=== PATIENT | male | born 1960 | race Caucasian/White ===

== ENCOUNTER 2020-03-27 12:02 | Inpatient (IN) | payer MEDICARE, SELFPAY ==
[2020-03-27 12:33] VITALS: BP 206/95; PULSE 63; RESP 18; TEMP 36.3; O2SAT 98; BMI 36.9
--- NOTE | 2020-03-27 13:05 | ECG_ITS ---
[facility] Test Date: 2020-03-27 Pat Name: Russell Camacho Department: Room: Gender: Male Bar Pilot: : 1960 Requested By: Pebbles Phipps Order Number: [id number] Malvin MD: Kvng Weems M.D. Measurements Intervals [place] Rate: 62 P: 63 MT: 162 QRS: 31 QRSD: 110 T: 67 QT: 429 QTc: 439 Interpretive Statements SINUS RHYTHM NONSPECIFIC T-WAVE ABNORMALITY INTERPRETATION BASED ON A DEFAULT AGE OF 40 YEARS No previous ECG available for comparison Electronically Signed On 03-27-2020 19:20:47 CDT by Kvng Weems M.D. [id number] f
--- NOTE | 2020-03-27 13:06 | XR_ITS ---
WS: [id number] Portable AP upright chest, 03/27/2020 Clinical Data: syncope Comparison: None. Findings: No nodules, masses or effusions are seen. The heart is normal. The pulmonary vascularity is not increased. No pneumonia or pneumothorax is seen. XR/XR chest 1V portable [id number] Impression: Negative chest.
[2020-03-27 15:56] LABS: Basophils # 0.1 10^3/uL (0.0-0.1); Basophils % 0.9 %; Eosinophils # 0.3 10^3/uL (0.0-0.8); Eosinophils % 5.1 %; Hematocrit 30.5 % (42.0-52.0); Lymphocytes # 1.3 10^3/uL (0.8-4.8); Lymphocytes % 22.3 %; Mean Corpuscular HGB Conc 29.5 g/dL (30.0-36.0); Mean Corpuscular Hemoglobin 28.4 pg (28.0-34.0); Mean Corpuscular Volume 96.2 fL (80-94); Mean Platelet Volume 10.3 fL (7.4-10.4); Monocytes # 0.5 10^3/uL (0.2-0.9); Monocytes % 7.8 %; Neutrophils # 3.74 10^3/uL (1.8-7.7); Neutrophils % 63.6 %; Nucleated Red Blood Cells % 0 %; Platelet Count 121 10^3/cmm (130-400); Red Blood Count 3.17 10^6/uL (4.1-5.3); Red Cell Distribution Width 14.3 % (12.1-15.1); White Blood Count 5.9 10^3/uL (4.0-10.0)
[2020-03-27 16:15] LABS: Alanine Aminotransferase 18 U/L (0-41); Albumin Level 4.4 g/dL (3.5-5.2); Alkaline Phosphatase 63 IU/L (40-130); Anion Gap 14.9 (5-19); Aspartate Amino Transferase 12 U/L (0-40); Blood Urea Nitrogen 47 mg/dL (8-23); Carbon Dioxide 21 mmol/L (22-29); Chloride 111 mmol/L (98-107); Globulin 2.6 g/dL (1.3-4.6); Glomerular Filtration Rate 7.8 mL/min (90-130); Glucose 95 mg/dL (65-115); Osmolality Calculated 306 mOsm/kg (285-295); Potassium 4.9 mmol/L (3.5-5.1); Sodium 142 mmol/L (136-145); Total Bilirubin 0.2 mg/dL (0.15-1.2)
--- NOTE | 2020-03-27 16:34 | ECG_ITS ---
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 Measurements Intervals [place] Rate: 60 P: 130 HI: 154 QRS: 188 QRSD: 110 T: 162 QT: 437 QTc: 439 Interpretive Statements SINUS RHYTHM ARM LEADS REVERSED [INVERTED P AND QRS IN I] ATYPICAL ECG Compared to ECG 03/27/2020 12:34:56 T-wave abnormality no longer present Electronically Signed On 03-27-2020 18:36:49 CDT by Kvng Weems M.D. [id number]
--- NOTE | 2020-03-27 16:36 | ED_ITS ---
HPI - General Adult General: Chief complaint: General Medical Stated complaint: L arm pain, HTN-out of meds Time Seen by Provider: 03/27/20 16:16 History of Present Illness: HPI narrative: 80-year-old male presents emergency room complaining of history of hypertension has not been taking his medications lately since he has been out. He denies any difficulty with speech swallowing or hearing. He has had a little bit of a low-grade headache. Onset (ago): minute(s) Location: face Radiation: non-radiation Relieving factors: medication Exacerbating factors: none Associated symptoms: Deny chest pain, dyspnea, malaise, nausea, rash or vomiting Review of Systems Const: Denies: fever(s), chills, body aches, change in appetite, fatigue or malaise ENMT: Denies: throat pain, ear or mastoid pain, nasal discharge or nasal congestion Card: Denies: chest pain, edema, dyspnea on exertion or orthopnea Resp: Denies: dyspnea, productive cough or non-productive cough GI: Denies: abdominal pain, nausea, vomiting, hematemesis, coffee ground emesis, diarrhea, constipation, bloating, hematochezia or melena : Denies: flank pain, dysuria, urinary frequency or urinary urgency Skin/Breast: Denies: rash or pruritus PFSH ED PFSH: Medical History Acute kidney injury Hyperlipidemia Hypertension Hypothyroidism Thrombocytopenia Social History Smoking and tobacco status: never smoked Alcohol intake: never Substance/Drug Use: never Physical Exam Const: COMMON NORMALS: no acute distress GENERAL APPEARANCE: cooperative and comfortable ORIENTATION/CONSCIOUSNESS: Yes awake, Yes oriented to person, Yes oriented to place and Yes oriented to time HENMT: COMMON NORMALS: normocephalic, atraumatic, hearing grossly normal bilaterally, external ears normal, EAC's normal, TM's normal bilaterally, Normal nasal mucous membranes and turbinates present, moist oral mucous membranes and oropharynx normal HEAD & SCALP: normocephalic and atraumatic NOSE: Normal nasal mucous membranes and turbinates present EXTERNAL EAR: Yes external ears normal EXTERNAL AUDITORY CANAL: EAC's normal TYMPANIC MEMBRANE: TM's normal bilaterally Eye: COMMON NORMALS: Equal, round and reactive pupils present, EOMs intact bilaterally, conjunctivae normal and no scleral icterus CONJUNCTIVA: Yes conjunctivae normal PUPIL: Yes Equal, round and reactive pupils present Neck/C-Spine: COMMON NORMALS: full ROM, no lymphadenopathy, supple and no JVD Lymph: LYMPHATIC: no lymphadenopathy noted and no lymphedema noted Resp: COMMON NORMALS: normal respiratory effort, No retractions, No use of accessory muscles and clear to auscultation bilaterally AUSCULTATION: clear to auscultation bilaterally Cardio: COMMON NORMALS: no JVD, regular rate, regular rhythm and No murmurs present (Cardio) RATE: regular rate RHYTHM: regular rhythm GI: COMMON NORMALS: Soft to palpation and No hepatosplenomegaly present AUSCULTATION: Yes normoactive bowel sounds PALPATION: Yes Soft to palpation, No Tenderness to palpation present (GI), No Guarding due to palpation present (GI) and Yes No hepatosplenomegaly present Extremity: COMMON NORMALS: normal to inspection, capillary refill normal, no clubbing, cyanosis or edema, no calf tenderness and no pedal edema Neuro: SENSORIUM/ORIENTATION: Yes oriented to person, Yes oriented to place and Yes oriented to time Skin: COMMON NORMALS: no rashes or lesions noted GENERAL SKIN EXAM: no rashes or lesions noted Course Vital Signs: Vital signs: Vital Signs Temperature 98.0 F 03/30/20 07:11 Pulse Rate 64 03/30/20 07:11 Respiratory Rate 20 H 03/30/20 07:11 Blood Pressure 137/75 03/30/20 07:11 Pulse Oximetry 93 03/30/20 07:11 MDM - General Adult MDM Narrative: Medical decision making narrative: Patient has significant acute kidney injury as well as accelerated hypertension and anemia. Discussed Dr. Black will go ahead and admit Lab Data: Labs: Lab Results 03/27/20 03/27/20 03/27/20 Range/Units 15:51 15:51 15:51 WBC 5.9 (4.0-10.0) 10^3/ uL RBC 3.17 L (4.1-5.3) 10^6/u L Hgb 9.0 L (11.7-16.6) g/dL Hct 30.5 L (42.0-52.0) % MCV 96.2 H (80-94) fL MCH 28.4 (28.0-34.0) pg MCHC 29.5 L (30.0-36.0) g/dL RDW 14.3 (12.1-15.1) % Plt Count 121 L (130-400) 10^3/c mm MPV 10.3 (7.4-10.4) fL Neut % (Auto) 63.6 % Lymph % (Auto) 22.3 % [place] % (Auto) 7.8 % Eos % (Auto) 5.1 % Baso % (Auto) 0.9 % Neut # (Auto) 3.74 (1.8-7.7) 10^3/u L Lymph # (Auto) 1.3 (0.8-4.8) 10^3/u L [place] # (Auto) 0.5 (0.2-0.9) 10^3/u L Eos # (Auto) 0.3 (0.0-0.8) 10^3/u L Baso # (Auto) 0.1 (0.0-0.1) 10^3/u L Nucleated RBC % (a uto) 0 % Nucleated RBCs # 0.0 /100WBC Sodium 142 (136-145) mmol/L Potassium 4.9 (3.5-5.1) mmol/L Chloride 111 H (98-107) mmol/L Carbon Dioxide 21 L (22-29) mmol/L Anion Gap 14.9 (5-19) BUN 47 H (8-23) mg/dL Creatinine 7.2 H* (0.7-1.2) mg/dL GFR Calculation 7.8 L (90-130) mL/min Glucose 95 (65-115) mg/dL Calculated Osmolal ity 306 H (285-295) mOsm/k g Calcium 9.0 (8.5-10.5) mg/dL Total Bilirubin 0.2 (0.15-1.2) mg/dL AST 12 (0-40) U/L ALT 18 (0-41) U/L Alkaline Phosphata se 63 (40-130) IU/L Troponin T Baselin e 40 H (0-15) ng/L Troponin T 120 Min abi (0-15) ng/L Delta Troponin T (0-10) ABS# Total Protein 7.0 (6.6-8.7) g/dL Albumin 4.4 (3.5-5.2) g/dL Globulin 2.6 (1.3-4.6) g/dL 03/27/20 Range/Units 17:15 WBC (4.0-10.0) 10^3/ uL RBC (4.1-5.3) 10^6/u L Hgb (11.7-16.6) g/dL Hct (42.0-52.0) % MCV (80-94) fL MCH (28.0-34.0) pg MCHC (30.0-36.0) g/dL RDW (12.1-15.1) % Plt Count (130-400) 10^3/c mm MPV (7.4-10.4) fL Neut % (Auto) % Lymph % (Auto) % [place] % (Auto) % Eos % (Auto) % Baso % (Auto) % Neut # (Auto) (1.8-7.7) 10^3/u L Lymph # (Auto) (0.8-4.8) 10^3/u L [place] # (Auto) (0.2-0.9) 10^3/u L Eos # (Auto) (0.0-0.8) 10^3/u L Baso # (Auto) (0.0-0.1) 10^3/u L Nucleated RBC % (a uto) % Nucleated RBCs # /100WBC Sodium (136-145) mmol/L Potassium (3.5-5.1) mmol/L Chloride (98-107) mmol/L Carbon Dioxide (22-29) mmol/L Anion Gap (5-19) BUN (8-23) mg/dL Creatinine (0.7-1.2) mg/dL GFR Calculation (90-130) mL/min Glucose (65-115) mg/dL Calculated Osmolal ity (285-295) mOsm/k g Calcium (8.5-10.5) mg/dL Total Bilirubin (0.15-1.2) mg/dL AST (0-40) U/L ALT (0-41) U/L Alkaline Phosphata se (40-130) IU/L Troponin T Baselin e (0-15) ng/L Troponin T 120 Min abi 38.52 H (0-15) ng/L Delta Troponin T -1.48 L (0-10) ABS# Total Protein (6.6-8.7) g/dL Albumin (3.5-5.2) g/dL Globulin (1.3-4.6) g/dL Discharge Plan Discharge Patient Disposition: Admitted As Inpatient Admit Provider: Sylvain Black Clinical Impression: Acute kidney injury, Hypertension, Hyperlipidemia Condition: Stable Discharge Diet: Usual diet Discharge Activity: Increase activity as tolerated Discharge Date/Time: 03/27/20 19:49 Coding Level of Care Code ED Substance Abuse Rn for Dari Arshad
[2020-03-27 17:04] LABS: Troponin(5th) Baseline 40 ng/L (0-15)
[2020-03-27 17:39] LABS: Troponin 5 2HR 38.52 ng/L (0-15)
[2020-03-27 17:42] LABS: Troponin 5 2HR Delta -1.48 ABS# (0-10)
[2020-03-27] MEDS: sodium chloride 0.9% 1,000 ML 999 ML IV (18:02)
[2020-03-27] MEDS: ondansetron 2 mg/ML SDV 2 mL 4 MG IVP (18:02)
[2020-03-27] MEDS: hyDRALAzine 20 mg/mL INJ 1 mL 10 MG IVP (18:02)
[2020-03-27 18:23] VITALS: BP 245/105
[2020-03-27] MEDS: cloNIDine 0.1 mg Tablet 0.2 MG PO (18:23)
--- NOTE | 2020-03-27 18:34 | ECG_ITS ---
[facility] Test Date: 2020-03-27 Pat Name: Russell Camacho Department: Room: Gender: Male Mounter Flutes And Piccolos: : 1960 Requested By: Juan A Crow Order Number: [id number] Malvin MD: Kvng Weems M.D. Measurements Intervals [place] Rate: 59 P: 65 AL: 157 QRS: 20 QRSD: 109 T: 32 QT: 430 QTc: 428 Interpretive Statements SINUS BRADYCARDIA NONSPECIFIC T-WAVE ABNORMALITY Compared to ECG 03/27/2020 16:50:55 T-wave abnormality now present Sinus rhythm no longer present Electronically Signed On 03-27-2020 18:54:59 CDT by Kvng Weems M.D. [id number]
--- NOTE | 2020-03-27 19:17 | P.HP_ITS ---
Providers/Chief Complaint Admitting Physician: Sylvain Black MD Chief Complaint: chest pain/left arm pain History of Present Illness Russell Camacho is a 60 year old male with past medical history of resistant hypertension, and hypothyroidism, came in with chief complaint of, left-sided chest pain and left arm, since this morning, pain is dull,6/10,no aggravating or allevaiting factors. Apart from the chest pain and the left arm pain, he denies any dizziness, headache, visual disturbances, shortness of breath, nausea, vomiting, abdominal pain, back pain, any weakness in any body part, any urinary complaints. He ran out of his antihypertensive medications for weeks as he lost his insurance. When he came to the ER his blood pressure was 245/105. In ER, CBC CMP troponin, EKG, x-ray chest, was done. He was given hydralazine 10 mg I.V * 1 dose, He was also given clonidine 0.2 mg oral x1 dose, nifedipine 90 er 1 dose. Review of Systems General: Reports: 10 or more systems reviewed and unremarkable except in HPI and below Const: Denies: fever(s), chills, body aches, change in appetite or diaphoresis Card: Denies: palpitations, edema, swelling of feet/ankles, dyspnea on exertion, orthopnea or leg pain with exertion Resp: Denies: dyspnea, productive cough, wheezing or pain on inspiration GI: Denies: abdominal pain, nausea, vomiting, diarrhea or constipation : Denies: flank pain Musc: Denies: back pain, extremity pain or extremity swelling Neuro: Denies: headache(s), difficulty walking or confusion Medications/Allergies Home Medications Medication Instructions Recorded Confirmed Last Taken Type aspirin 81 mg PO BID 03/27/20 03/27/20 03/27/20 History atenolol 100 mg PO DAILY 03/27/20 03/27/20 Unknown History atorvastatin 80 mg PO DAILY 03/27/20 03/27/20 Unknown History clonidine HCl 0.1 mg PO DAILY PRN 03/27/20 03/27/20 03/27/20 History colchicine 0.6 mg PO BID 03/27/20 03/27/20 Unknown History ergocalciferol (vitamin D2) 1,250 mcg PO Q7D 03/27/20 03/27/20 Unknown History furosemide [Lasix] 40 mg PO DAILY 03/27/20 03/27/20 Unknown History levothyroxine 50 mcg PO DAILY 03/27/20 03/27/20 Unknown History lisinopril 40 mg PO DAILY 03/27/20 03/27/20 Unknown History nifedipine 90 mg PO DAILY 03/27/20 03/27/20 Unknown History Allergies Allergy/AdvReac Type Severity Reaction Status Date / Time No Known Allergies Allergy Verified 03/27/20 11:18 PFSH Acute PFSH: Social History Smoking and tobacco status: never smoked Alcohol intake: never Substance/Drug Use: never Vitals/I&O/Wt Last Vital Signs Temp 97.3 F L 03/27/20 12:33 Pulse 63 03/27/20 12:33 Resp 18 03/27/20 12:33 BP 245/105 03/27/20 18:23 Pulse Ox 98 03/27/20 12:33 Weight last 48 hrs Weight 127.006 kg Physical Exam Const: COMMON NORMALS: patient oriented x3 HENMT: COMMON NORMALS: normocephalic, atraumatic, hearing grossly normal bilaterally and external ears normal HEAD & SCALP: normocephalic and atraumatic EXTERNAL EAR: Yes external ears normal Eye: COMMON NORMALS: no scleral icterus GENERAL EYE: appearance normal, both eyes and all related structures Chest: COMMONS NORMALS: normal inspection of the chest and normal palpation of entire chest wall CHEST: Yes Symmetrical chest wall rise Resp: COMMON NORMALS: normal respiratory effort, No retractions, No use of acc essory muscles and clear to auscultation bilaterally EFFORT & INSPECTION: Yes symmetric chest movement AUSCULTATION: clear to auscultation bilaterally Cardio: COMMON NORMALS: regular rate, regular rhythm, S1 normal heart sound present, S2 normal heart sound present, No gallops present (Cardio), No murmurs present (Cardio), No rub (Cardio) and Peripheral pulses 2+ throughout RATE: regular rate RHYTHM: regular rhythm HEART SOUNDS: S1 normal heart sound present and S2 normal heart sound present PERIPHERAL PULSES: Peripheral pulses 2+ throughout GI: COMMON NORMALS: Normal to inspection, nondistended, normoactive bowel sounds present, Soft to palpation, non-tender, No hepatosplenomegaly present and no masses AUSCULTATION: Yes normoactive bowel sounds PALPATION: Yes Soft to palpation and Yes No hepatosplenomegaly present RECTAL EXAM: Yes deferred : COMMON NORMALS: Yes no CVA tenderness BLADDER/KIDNEY EXAM: Yes no CVA tenderness Back/Pelvis: COMMON NORMALS: no CVA tenderness Extremity: COMMON NORMALS: no clubbing, cyanosis or edema and no pedal edema Neuro: COMMON NORMALS: patient oriented x3 Data : 03/27/20 15:51 03/27/20 15:51 A&P Assessment and plan (1) Hypertensive urgency: Russell Camacho is a 60 year old male with past medical history of resistant hypertension, and hypothyroidism, came in with chief complaint of, left-sided chest pain and left arm, since this morning, pain is dull,6/10,no aggravating or allevaiting factors. Apart from the chest pain and the left arm pain, he denies any dizziness, headache, visual disturbances, shortness of breath, nausea, vomiting, abdominal pain, back pain, any weakness in any body part, any urinary complaints. He ran out of his antihypertensive medications for weeks as he lost his ins urance. When he came to the ER his blood pressure was 245/105. In ER, CBC CMP troponin, EKG, x-ray chest, was done. He was given hydralazine 10 mg I.V * 1 dose, He was also given clonidine 0.2 mg oral x1 dose, nifedipine 90 er 1 dose. Continue : Resume home medications: Atenolol 100 mg oral daily Clonidine 0.6 mg q12 h daily ( after veriying the dose ) Hydralazine 50 mg q8 h daily Nifedepine 90 mg oral daily Hold Lisinopril 40 mg oral daily Hold Lasix 40 mg po daily Get 2D ECHO CONTINUE TO TREND TROPONIN. Status: Acute (2) Acute kidney injury: ALEKSANDAR V/S ALEKSANDAR ON CKD.Can be due to Hypertensive emergency.Baseline SCR is currently unkown. I.V Hydration, Avoid Nephrotoxic, hold Lisinopril. Renal Consult Status: Acute (3) Hypothyroidism: Continue Levothyroxine 50 mcg oral daily Status: Acute (4) Anemia: Likely ACD. Monitor CBC No need for transfusion Status: Acute (5) Thrombocytopenia: Continue to monitor CBC.No signs of active bleeding,petechae,pupura. Will order ,HepB ,Hep C, HIV Status: Acute (6) Hyperlipidemia: Continue Atorvastatin 80 mg oral daily Status: Acute (7) Chest pain: Likely 2/2 to uncontolled HTN. Trend Troponin, serial ekg, Nitro sublingual Blood Pressure control Status: Acute Additional A&P Information DVT PPX: On Heparin 5000 q12 h daily Code status : Full Code Attestations Medical Necessity Statement*: Patient needs to be in hospital for management of hypertensive urgency. Coding Level of Care Code Acute Molecular Spectroscopist for [facility] Fwd Diagnoses Hypertensive urgency I16.0 Acute kidney injury N17.9 Hypothyroidism E03.9 Anemia D64.9 Thrombocytopenia D69.6 Hyperlipidemia E78.5 Chest pain R07.9
[2020-03-27] MEDS: heparin 5,000 unit/mL INJ 1 mL 5000 UNIT SUBCUT (19:24)
[2020-03-27] MEDS: sodium chloride 0.45% 1,000 ML 125 ML IV (19:26)
[2020-03-27 19:48] VITALS: BP 189/90; PULSE 84; RESP 17; O2SAT 97
[2020-03-27 19:57] VITALS: BP 195/87; PULSE 85; RESP 17; TEMP 36.8; O2SAT 98
[2020-03-27] MEDS: NIFEdipine ER (24 hr) 30 mg Tablet 90 MG PO (20:54)
[2020-03-27] MEDS: hyDRALAzine 50 mg Tablet PO (20:54)
[2020-03-27 21:22] LABS: Urine Creatinine 120 mg/dL (39-259); Urine Random Sodium 86 mmol/L
[2020-03-27 21:27] LABS: Urine Protein Random 97 mg/dL
--- NOTE | 2020-03-27 22:34 | ECG_ITS ---
[facility] Test Date: 2020-03-27 Pat Name: Russell Camacho Department: Room: 105 Gender: Male Tone Regulator: : 1960 Requested By: Juan A Crow Order Number: [id number] Malvin MD: Maribell Lomas M.D. Measurements Intervals [place] Rate: 63 P: 55 [place]: 152 QRS: 23 QRSD: 109 T: -12 QT: 415 QTc: 427 Interpretive Statements SINUS RHYTHM MODERATE T-WAVE ABNORMALITY, CONSIDER LATERAL ISCHEMIA [-0.1+ mV T WAVE IN I/aVL/V5/V6] Compared to ECG 03/27/2020 18:15:11 Possible ischemia now present Sinus bradycardia no longer present T-wave abnormality still present Electronically Signed On 03-28-2020 18:11:36 CDT by Maribell Lomas M.D. [id number]
--- NOTE | 2020-03-27 22:55 | PC.NURSE ---
PT ARRIVED TO FLOOR APPROXIMATELY 1999. PT DENIES PAIN. PT WAS ORIENTATED TO ROOM. WILL CONTINUE TO MONITOR.
[2020-03-27 23:13] LABS: Troponin 5 6HR 38.05 ng/L (0-15)
[2020-03-27 23:18] LABS: Troponin 5 6HR Delta -1.95 ng/L (0-12)
[2020-03-27 23:34] VITALS: BP 173/85; PULSE 64; RESP 18; TEMP 36.7; O2SAT 95
[2020-03-28] VITALS (7 sets, daily range): BP systolic 128–165; BP diastolic 61–81; PULSE 60–70; RESP 18–24; TEMP 36.2–36.8; O2SAT 92–95
[2020-03-28] MEDS: sodium chloride 0.45% 1,000 ML 125 ML IV ×3 (03:48→18:00)
[2020-03-28 04:27] LABS: Basophils % 0.7 %; Eosinophils # 0.3 10^3/uL (0.0-0.8); Eosinophils % 5.1 %; Hematocrit 27.5 % (42.0-52.0); Lymphocytes # 1.3 10^3/uL (0.8-4.8); Lymphocytes % 22.9 %; Mean Corpuscular HGB Conc 29.1 g/dL (30.0-36.0); Mean Corpuscular Hemoglobin 28.5 pg (28.0-34.0); Mean Corpuscular Volume 97.9 fL (80-94); Mean Platelet Volume 10.9 fL (7.4-10.4); Monocytes # 0.5 10^3/uL (0.2-0.9); Monocytes % 7.8 %; Neutrophils # 3.69 10^3/uL (1.8-7.7); Nucleated Red Blood Cells % 0 %; Platelet Count 125 10^3/cmm (130-400); Red Blood Count 2.81 10^6/uL (4.1-5.3); Red Cell Distribution Width 14.6 % (12.1-15.1); White Blood Count 5.9 10^3/uL (4.0-10.0)
[2020-03-28 04:51] LABS: Alanine Aminotransferase 17 U/L (0-41); Albumin Level 3.8 g/dL (3.5-5.2); Alkaline Phosphatase 54 IU/L (40-130); Anion Gap 15.6 (5-19); Aspartate Amino Transferase 12 U/L (0-40); Blood Urea Nitrogen 46 mg/dL (8-23); Calcium 8.4 mg/dL (8.5-10.5); Carbon Dioxide 19 mmol/L (22-29); Chloride 110 mmol/L (98-107); Globulin 2.2 g/dL (1.3-4.6); Glomerular Filtration Rate 9.8 mL/min (90-130); Glucose 96 mg/dL (65-115); Magnesium 2.2 mg/dL (1.7-2.3); Osmolality Calculated 302 mOsm/kg (285-295); Phosphorus 5.8 mg/dL (2.5-4.5); Potassium 4.6 mmol/L (3.5-5.1); Sodium 140 mmol/L (136-145); Total Bilirubin 0.2 mg/dL (0.15-1.2)
[2020-03-28] MEDS: heparin 5,000 unit/mL INJ 1 mL 5000 UNIT SUBCUT ×2 (05:34→17:59)
--- NOTE | 2020-03-28 06:41 | PC.NURSE ---
PT HAD AN UNEVENTFUL NIGHT. BP IS COMING DOWN CURRENTLY 144/78. DENIES PAIN AT THIS TIME. WILL CONTINUE TO MONITOR.
[2020-03-28] MEDS: levothyroxine 50 mcg Tablet PO (08:04)
[2020-03-28] MEDS: cloNIDine 0.1 mg Tablet 0.3 MG PO ×2 (08:04→20:39)
[2020-03-28] MEDS: atorvastatin 40 mg Tablet 80 MG PO (08:07)
[2020-03-28] MEDS: aspirin 81 mg Chew Tablet PO ×2 (08:07→18:00)
[2020-03-28] MEDS: ergocalciferol (vitamin D2) 50,000 Unit Capsule 50000 UNIT PO (08:07)
[2020-03-28] MEDS: sodium bicarbonate 650 mg Tablet PO ×3 (09:16→20:39)
[2020-03-28] MEDS: atenolol 50 mg Tablet 100 MG PO (09:17)
[2020-03-28] MEDS: hyDRALAzine 50 mg Tablet PO ×2 (09:17→20:39)
--- NOTE | 2020-03-28 10:56 | P.CONIM_ITS ---
Providers/Reason For Consult Consulting Physican/Specialty*: Nephrology Reason for Consult*: Eval for ALEKSANDAR Attending Physician: Sylvain Black MD History of Present Illness History of Present Illness Thank you for consultation. Today I reviewed this 60-year-old gentleman for evaluation of acute on chronic kidney disease. He presented with a left chest and arm discomfort, which has now resolved after hospitalization. It was noted on admission that his systolic blood pressure was 245. He has missed his medication now for the last few months. Following hospitalization he is received a combination of antihypertensives including Atenolol, nifedipine, clonidine, hydralazine with a good improvement in his blood pressure down to 14 0-150 systolic. From a renal perspective, he has had stage IV chronic kidney disease now for the last couple of years. He was referred to see a weed cutter, however did not do so. He attributes the chronic kidney disease to exposure to proton pump inhibitors. We do not have any historic labs to review all data. He has had high blood pressure since the age of 28, intermittently controlled a nd intermittently on a variety of different medications. He has not had any evaluation for secondary causes. Of note he does have symptoms of obstructive sleep apnea, was tested for this number of years ago which was okay, however no recent testing. It is noted that he is obese. No other history of adrenal disorders, and no history of renal artery disease or other vascular bed disease. No edema and no other volume associated symptoms. Renal sono shows small atrophic kidneys, simple cysts. Review of Systems Narrative: ROS - 12 point review of systems completed per HPI and subjective assessment, this includes Constitutional: No weakness, fatigue Respiratory: No SOB on exertion, comfortable at rest CardioVasc: No chest pain, palpitations Gastrointestinal: No nausea, no vomiting Neurological: No seizures, no AMS Derm: No new rashes, lesions or wounds Immunological: No seasonal and no food allergies Meds/Allergies Home Medications and Allergies Home Medications Medication Instructions Recorded Confirmed Last Taken Type aspirin 81 mg PO BID 03/27/20 03/27/20 03/27/20 History atenolol 100 mg PO DAILY 03/27/20 03/27/20 Unknown History atorvastatin 80 mg PO DAILY 03/27/20 03/27/20 Unknown History clonidine HCl 0.1 mg PO DAILY PRN 03/27/20 03/27/20 03/27/20 History colchicine 0.6 mg PO BID 03/27/20 03/27/20 Unknown History ergocalciferol (vitamin D2) 1,250 mcg PO Q7D 03/27/20 03/27/20 Unknown History furosemide [Lasix] 40 mg PO DAILY 03/27/20 03/27/20 Unknown History levothyroxine 50 mcg PO DAILY 03/27/20 03/27/20 Unknown History lisinopril 40 mg PO DAILY 03/27/20 03/27/20 Unknown History nifedipine 90 mg PO DAILY 03/27/20 03/27/20 Unknown History Allergies Allergy/AdvReac Type Severity Reaction Status Date / Time No Known Allergies Allergy Verified 03/27/20 11:18 Current Medications Current Medications Generic Name Dose Route Start Last Admin Trade Name Freq PRN Reason Stop Dose Admin Aspirin 81 mg 03/28/20 09:00 03/28/20 08:07 Aspirin Chewable PO 81 mg BID JANEY Administration Atenolol 100 mg 03/28/20 09:00 03/28/20 09:17 Tenormin PO 100 mg DAILY JANEY Administration Atorvastatin Calcium 80 mg 03/28/20 09:00 03/28/20 08:07 Lipitor PO 80 mg DAILY JANEY Administration Clonidine HCl 0.3 mg 03/28/20 08:00 03/28/20 08:04 Catapres PO 0.3 mg Q12H JANEY Administration Ergocalciferol 50,000 unit 03/28/20 09:00 03/28/20 08:07 Vitamin D2 PO 50,000 unit Q7D JANEY Administration Heparin Sodium (Beef Lung) 5,000 unit 03/27/20 18:30 03/28/20 05:34 Heparin SUBCUT 5,000 unit Q12H JANEY Administration Hydralazine HCl 50 mg 03/27/20 21:00 03/28/20 09:17 Apresoline PO 50 mg TID JANEY Administration Sodium Chloride 1,000 mls @ 125 mls/hr 03/27/20 18:30 03/28/20 03:48 Sodium Chloride 0.45% IV 125 mls/hr .Q8H JANEY Administration Levothyroxine Sodium 50 mcg 03/28/20 09:00 03/28/20 08:04 Synthroid PO 50 mcg DAILY JANEY Administration Nifedipine 90 mg 03/27/20 19:00 03/27/20 20:54 Procardia Xl PO 90 mg Q24H JANEY Administration Sodium Bicarbonate 650 mg 03/28/20 09:00 03/28/20 09:16 Sodium Bicarbonate PO 650 mg TID JANEY Administration PFSH Acute 2 PFSH: Social History Smoking and tobacco status: never smoked Alcohol intake: never Substance/Drug Use: never Vitals/I&O/Wt Last Vital Signs Temp 98.1 F 03/28/20 07:39 Pulse 70 03/28/20 07:39 Resp 18 03/28/20 07:39 BP 156/81 03/28/20 08:04 Pulse Ox 95 03/28/20 07:39 03/27/20 03/28/20 03/28/20 22:59 06:59 14:59 Intake Total 120 / 120 1950 / 2070 354 / 354 Output Total 675 / 675 700 / 700 Balance 120 / 120 1275 / 1395 -346 / -346 Weight last 48 hrs Weight 127.006 kg Physical Exam Narrative: EXAM NARRATIVE: Constitutional: Awake, conversant HEENT: Wet mucosa, no jvp, non icteric Lungs: Bilaterally clear without discernible wheeze, rales in all lung zones CVS: S1 S2, no murmurs Abdo: Soft, BS ok Ext 4: Minimal edema, peripheral perfusion with no cyanosis Neurological: Grossly non-focal A&P Additional A&P Information 1. ALEKSANDAR on CKD stage 4 - We do not have historic data, however, he gives a clear history of stage IV chronic kidney disease. 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 He is currently receiving intravenous fluid and blood pressures coming under control, and this is helping to improve his renal function. Over the next few days we should see how renal function plateaus out, or reflection of his baseline. In terms of diagnostic testing, ultrasound imaging has been done. I will formally quantify urinary protein, check CPK, uric acid, TSH. No indication for hemodialysis at this time. Following discharge will need to be seen by nephrology in a local clinic. Avoid the usual nephrotoxic agents. 2.Hypertension His blood pressure is coming under control. With this in mind I have not adjusted his blood pressure regimen. He does need diagnostic testing for secondary hypertension. As an outpatient I have implored him to get a sleep study as soon as possible. Tomorrow morning we will check renin/Toan levels and cortisol levels. Will consider renal artery Doppler down the road as well, however, even if stenosis is present is unlikely to change his management. Over the next few days his blood pressure goal will be a systolic of roughly 150 with a long-term goal of less than 130/80 3. Chest and left arm pain. Pending echocardiogram and troponin levels. Defer any further diagnostic evaluation to Dr. Black. If angiographic dye is required over the next few days, this will have to be balanced against potential risk of harm to his kidneys. Jeevan Mendoza MD Nephrology [phone] Patient seen and examined via telemedicine, with the assistance of the bedside RN Consult Attestations Medical Necessity Statement: Eval for ALEKSANDAR Coding Level of Care Code Acute Branch Operation Evaluation Manager for Dari Arshad
--- NOTE | 2020-03-28 13:30 | PC.CHAP ---
Pastoral Care Encounter/Spiritual Assessment Type of Contact [] Declined counter caser visit [] Patient/Family/Request visit [] Outpatient visit [] Follow-up visit [] Physician referral [] Code/Alert [X] Routine visit [] Staff referral [] Actively dying [] Patient sleeping [] Family support [] [] Out of room [] Palliative care [] [] Receiving care in room [] Pre-surgical visit [] Trauma [] Long length of stay [] ICU visit [] Other: Relational/Emotional Strength [] Patient feels connected with others/family/visitors/staff [] Distress [] Loneliness/isolation [] Abandonment Spirituality of Patient [] Person of Christen [] Attends Latter Day of their Christen [] Believes in Prayer [] Reads Bible or Religion materials [] There are Spiritual issues to be addressed Transmission Builder Interventions [] Prayer [] Active listening [] Non-anxious presence [] Spiritual/emotional support [] Crisis/trauma care [] Spiritual counseling [] Bereavement support [] Provided bereavement packet [] Provided Bible/devotional materials [] Provided toy/stuffed animal, coloring book to patient or family member [] Provided Communion [] Anointing/[place] [] Salvation [] Completed spiritual assessment [] Other: Impact on Illness or Injury [] Angry [] Fearful [] Anxious [] Often cries [] Exhaustion [] Unable to work [] Unable to attend rastafari [] Unable to walk/stand [] Unable to read [] Unable to drive [] Unable to eat/drink [] Unable to sleep [] Unable to be with family [] Patient intubated [] Other: Summary Time spent with patient
[2020-03-28 13:32] LABS: Creatine Phosphokinase 102 U/L (39-308); Thyroid Stimulating Hormone 4.45 uIU/mL (0.27-4.20); Uric Acid 6.7 mg/dL (3.4-7.0)
--- NOTE | 2020-03-28 15:45 | PM.PN ---
Subjective Subjective: Interval history: No complain of lt sided chest pain as well as arm pain.Blood pressure is well controlled.SCR is trending down. Vitals and labs have been reviewed.Renal U/S done. Medications: Reviewed: Yes Vitals/I&O/Wt Last Vital Signs Temp 97.2 F L 03/28/20 12:07 Pulse 66 03/28/20 12:07 Resp 18 03/28/20 12:07 BP 128/61 03/28/20 12:07 Pulse Ox 95 03/28/20 12:07 03/28/20 03/28/20 03/28/20 06:59 14:59 22:59 Intake Total 1949 / 0 1249.833 / 1249.833 Output Total 675 / 675 1300 / 1300 Balance 1275 / 1395 -50.167 / -50.167 Weight last 48 hrs Weight 127.006 kg Physical Exam Const: COMMON NORMALS: patient oriented x3 HENMT: COMMON NORMALS: normocephalic, atraumatic, hearing grossly normal bilaterally and external ears normal HEAD & SCALP: normocephalic and atraumatic EXTERNAL EAR: Yes external ears normal Eye: COMMON NORMALS: no scleral icterus GENERAL EYE: appearance normal, both eyes and all related structures Chest: COMMONS NORMALS: normal inspection of the chest and normal palpation of entire chest wall CHEST: Yes Symmetrical chest wall rise Resp: COMMON NORMALS: normal respiratory effort, No retractions, No use of accessory muscles and clear to auscultation bilaterally EFFORT & INSPECTION: Yes symmetric chest movement AUSCULTATION: clear to auscultation bilaterally Cardio: COMMON NORMALS: regular rate, regular rhythm, S1 normal heart sound present, S2 normal heart sound present, No gallops present (Cardio), No murmurs present (Cardio), No rub (Cardio) and Peripheral pulses 2+ throughout RATE: regular rate RHYTHM: regular rhythm HEART SOUNDS: S1 normal heart sound present and S2 normal heart sound present PERIPHERAL PULSES: Peripheral pulses 2+ throughout GI: COMMON NORMALS: Normal to inspection, nondistended, normoactive bowel sounds present, Soft to palpation, non-tender, No hepatosplenomegaly present and no masses AUSCULTATION: Yes normoactive bowel sounds PALPATION: Yes Soft to palpation and Yes No hepatosplenomegaly present RECTAL EXAM: Yes deferred : COMMON NORMALS: Yes no CVA tenderness BLADDER/KIDNEY EXAM: Yes no CVA tenderness Back/Pelvis: COMMON NORMALS: no CVA tenderness Extremity: COMMON NORMALS: no clubbing, cyanosis or edema and no pedal edema Neuro: COMMON NORMALS: patient oriented x3 Data : 03/28/20 03:33 03/28/20 03:33 A&P Assessment and plan (1) Hypertensive urgency: Russell Camacho is a 60 year old male with past medical history of resistant hypertension, and hypothyroidism, came in with chief complaint of, left-sided chest pain and left arm, since this morning, pain is dull,6/10,no aggravating or allevaiting factors. Apart from the chest pain and the left arm pain, he denies any dizziness, headache, visual disturbances, shortness of breath, nausea, vomiting, abdominal pain, back pain, any weakness in any body part, any urinary complaints. He ran out of his antihypertensive medications for weeks as he lost his insurance. When he came to the ER his blood pressure was 245/105. In ER, CBC CMP troponin, EKG, x-ray chest, was done. He was given hydralazine 10 mg I.V * 1 dose, He was also given clonidine 0.2 mg oral x1 dose, nifedipine 90 er 1 dose. Continue : Resume home medications: Atenolol 100 mg oral daily Clonidine 0.3 mg q12 h daily ( after veriying the dose ) Hydralazine 50 mg q12 h daily Nifedepine 90 mg oral daily Hold Lisinopril 40 mg oral daily Hold Lasix 40 mg po daily 2D ECHO: Normal left ventricular size, systolic function and wall thickness, with no regional wall motion abnormalities. Left ventricular ejection fraction is estimated at 65%. Indeterminate diastolic function.Normal right ventricular size and systolic function. Normal pulmonary artery pressure. No prior similar studies to compare. Status: Acute (2) Acute kidney injury: ALEKSANDAR V/S ALEKSANDAR ON CKD.Can be due to Hypertensive emergency.Baseline SCR is currently unkown. I.V Hydration, Avoid Nephrotoxic, hold Lisinopril. Renal Consult Status: Acute (3) Hypothyroidism: Continue Levothyroxine 50 mcg oral daily Status: Acute (4) Anemia: Likely ACD. Monitor CBC No need for transfusion Status: Acute (5) Thrombocytopenia: Continue to monitor CBC.No signs of active bleeding,petechae,pupura. Will order ,HepB ,Hep C, HIV Status: Acute (6) Hyperlipidemia: Continue Atorvastatin 80 mg oral daily Status: Acute (7) Chest pain: Likely 2/2 to uncontolled HTN. Trend Troponin, serial ekg, Nitro sublingual Blood Pressure control Status: Acute Additional A&P Information DVT PPX: On Heparin 5000 q12 h daily Code status : Full Code Attestations Medical Necessity Statement*: Patient need to be hospital for Severe ALEKSANDAR managemnt as well for hypertensive urgency management. Coding Level of Care Code Acute [employer] for Chg Fwd Diagnoses Hypertensive urgency I16.0 Acute kidney injury N17.9 Hypothyroidism E03.9 Anemia D64.9 Thrombocytopenia D69.6 Hyperlipidemia E78.5 Chest pain R07.9
[2020-03-28] MEDS: NIFEdipine ER (24 hr) 30 mg Tablet 90 MG PO (18:00)
--- NOTE | 2020-03-28 19:14 | USCV_ITS ---
Russell Camacho Age: 60 Gender: M : 1960 Exam Date: 03/28/2020 06:47 Ordering Phys: Sylvain Black MD Technologist: Nguyen Ellis Exam Location: [facility] [place] Indication: Chest pain BP: / HR: Rhythm: Sinus Technical Quality: Fair MEASUREMENTS (Male / Female) Normal Values 2D ECHO LV Diastolic Diameter PLAX 5.5 cm 4.2 - 5.9 / 3.9 - 5.3 cm LV Systolic Diameter PLAX 3.7 cm LV Chamber Size 5.0 cm IVS Diastolic Thickness 2.1 cm 0.6 - 1.0 / 0.6 - 0.9 cm IVS Systolic Thickness 2.9 cm LVPW Diastolic Thickness 1.7 cm 0.6 - 1.0 / 0.6 - 0.9 cm LVPW Systolic Thickness 2.0 cm RV Chamber Size 3.1 cm LVOT Diameter 2.1 cm LV Ejection Fraction 2D Teich 60.0 % LV Ejection Fraction MOD 2C 72.8 % LV Ejection Fraction 2C AL 72.6 % LA Diameter 4.1 cm LA Width 4.2 cm LA Height 5.2 cm RA Width 2.8 cm RA Height 5.4 cm Aorta at Sinotubular Diameter 3.3 cm M-MODE LV Diastolic Diameter MM 6.2 cm 4.2 - 5.9 / 3.9 - 5.3 cm LV Systolic Diameter MM 3.6 cm LV Ejection Fraction MM Teich 72.3 % IVS Diastolic Thickness MM 1.6 cm 0.6 - 1.0 / 0.6 - 0.9 cm IVS Systolic Thickness MM 1.9 cm LVPW Diastolic Thickness MM 1.4 cm 0.6 - 1.0 / 0.6 - 0.9 cm LVPW Systolic Thickness MM 2.4 cm RV Diastolic Diameter MM 2.4 cm Aortic Annulus Diameter 3.8 cm LA Ao Ratio MM 0.9 MV E Point Septal Separation 0.2 cm DOPPLER AV Peak Velocity 167.0 cm/s LVOT Peak Velocity 120.0 cm/s AV Area Cont Eq vti 2.7 cm squared AV Area Cont Eq pk 2.4 cm squared MV Area PHT 4.0 cm squared Mitral E to A Ratio 1.2 MV E' Velocity 57.0 cm/s Mitral E to MV E' Ratio 15.8 Mitral E to LV E' Lateral Ratio 13.3 Mitral E to LV E' Septal Ratio 19.6 TR Peak Velocity 207.0 cm/s TR Peak Gradient 17.1 mmHg TV Peak E Velocity 62.0 cm/s Right Atrial Pressure 3.0 mmHg Pulmonary Artery Systolic Pressu 20.1 mmHg PV Peak Velocity 82.0 cm/s RV Acceleration Time 0.1 s RV Ejection Time 0.3 s RV AcT/ET 0.2 FINDINGS Left Ventricle Normal left ventricular size, systolic function and wall thickness, with no regional wall motion abnormalities. Left ventricular ejection fraction is estimated at 65%. Indeterminate diastolic function. Right Ventricle Normal right ventricular size and systolic function. Right ventricular systolic pressure 20.1 mmHg. Right Atrium Normal right atrial size. Right atrial pressure stimated at 3 mm Hg. Left Atrium Upper normal left atrial size. Mitral Valve Mildly thickened mitral valve. No mitral valve stenosis. Trace mitral valve regurgitation. Aortic Valve Aortic valve not well visualized. Possibly tricupsid aortic valve. No aortic valve stenosis. No aortic valve regurgitation. Tricuspid Valve Structurally normal tricuspid valve. Trace tricuspid valve regurgitation. Pulmonic Valve Pulmonic valve not well visualized. No pulmonary valve stenosis. No significant pulmonary valve regurgitation. Pericardium No pericardial effusion. Normal sized inferior vena cava. Aorta Normal sized aortic root. CONCLUSIONS 1. Normal left ventricular size, systolic function and wall thickness, with no regional wall motion abnormalities. Left ventricular ejection fraction is estimated at 65%. Indeterminate diastolic function. 2. Normal right ventricular size and systolic function. 3. Normal pulmonary artery pressure. 4. No prior similar studies to compare. Maribell Lomas MD (Electronically Signed) Final Date: 28 March 2020 14:11 S
--- NOTE | 2020-03-28 19:15 | USR_ITS ---
PROCEDURE INFORMATION: Exam: US Retroperitoneal; Complete; Kidneys and Bladder Exam date and time: 03/28/2020 6:16 AM Age: 60 years old Clinical indication: Abnormal findings; Abnormal lab test; Abnormal kidney function lab tests; Additional info: Randy TECHNIQUE: Imaging protocol: Real-time ultrasound of the retroperitoneum with image documentation. Complete exam focused on the kidneys and bladder. COMPARISON: No relevant prior studies available. FINDINGS: Right kidney: The right kidney measures 9.08 cm in length. There is right renal cortical atrophy. No hydronephrosis is seen. There are no obvious calcifications in the right kidney or abnormal masses. Left kidney: The left kidney measures 10.45 cm in length. There is left renal cortical atrophy. There are 2 benign simple cysts in the right kidney measuring 3 cm and 2 cm in diameter. There are no suspicious masses. There is no hydronephrosis on the left side. There is a 1.3 cm nonobstructing calcification in the left kidney. Aorta: The visualized portion of the aorta is unremarkable. Bladder: The urinary bladder is unremarkable. US/US renal BI with bladder IMPRESSION: 1. Left nephrolithiasis. 2. Renal cortical atrophy. 3. No hydronephrosis. COMMENTS: Consistent with the [employer]'s Incidental Findings Committee white paper (J Am Reginald Radiol 2018): Any incidental renal lesion less than 1 cm or classified as too small to characterize, or any incidental cystic renal lesion characterized as simple-appearing, is likely benign. No follow-up imaging is recommended for these lesions per consensus recommendations based on imaging criteria.
[2020-03-29] VITALS (8 sets, daily range): BP systolic 124–160; BP diastolic 60–81; PULSE 59–66; RESP 14–20; TEMP 36.6–37; O2SAT 94–99
[2020-03-29] MEDS: sodium chloride 0.45% 1,000 ML 125 ML IV ×3 (02:08→18:09)
[2020-03-29 05:36] LABS: Basophils % 0.9 %; Eosinophils # 0.3 10^3/uL (0.0-0.8); Eosinophils % 6.4 %; Hematocrit 26.2 % (42.0-52.0); Hemoglobin 7.8 g/dL (11.7-16.6); Lymphocytes # 1.2 10^3/uL (0.8-4.8); Lymphocytes % 25.7 %; Mean Corpuscular HGB Conc 29.8 g/dL (30.0-36.0); Mean Corpuscular Hemoglobin 28.9 pg (28.0-34.0); Mean Platelet Volume 10.7 fL (7.4-10.4); Monocytes # 0.4 10^3/uL (0.2-0.9); Monocytes % 9.8 %; Neutrophils # 2.56 10^3/uL (1.8-7.7); Neutrophils % 56.8 %; Nucleated Red Blood Cells % 0 %; Platelet Count 136 10^3/cmm (130-400); Red Cell Distribution Width 14.9 % (12.1-15.1); White Blood Count 4.5 10^3/uL (4.0-10.0)
[2020-03-29] MEDS: heparin 5,000 unit/mL INJ 1 mL 5000 UNIT SUBCUT ×2 (05:43→18:05)
[2020-03-29 05:59] LABS: Alanine Aminotransferase 14 U/L (0-41); Albumin Level 3.7 g/dL (3.5-5.2); Alkaline Phosphatase 52 IU/L (40-130); Anion Gap 14.4 (5-19); Aspartate Amino Transferase 9 U/L (0-40); Blood Urea Nitrogen 46 mg/dL (8-23); Calcium 8.4 mg/dL (8.5-10.5); Carbon Dioxide 19 mmol/L (22-29); Chloride 109 mmol/L (98-107); Glomerular Filtration Rate 8.7 mL/min (90-130); Glucose 115 mg/dL (65-115); Magnesium 2.2 mg/dL (1.7-2.3); Osmolality Calculated 299 mOsm/kg (285-295); Phosphorus 5.2 mg/dL (2.5-4.5); Potassium 4.4 mmol/L (3.5-5.1); Sodium 138 mmol/L (136-145); Total Bilirubin 0.2 mg/dL (0.15-1.2); Total Protein 5.7 g/dL (6.6-8.7)
--- NOTE | 2020-03-29 06:33 | PC.NURSE ---
PT HAD AN UNEVENTFUL NIGHT. BP IS COMING DOWN CURRENTLY 129/74. DENIES PAIN AT THIS TIME. WILL CONTINUE TO MONITOR.
[2020-03-29] MEDS: cloNIDine 0.1 mg Tablet 0.3 MG PO (07:51)
[2020-03-29] MEDS: hyDRALAzine 50 mg Tablet PO (07:51)
[2020-03-29] MEDS: atenolol 50 mg Tablet PO (09:17)
[2020-03-29] MEDS: aspirin 81 mg Chew Tablet PO ×2 (09:17→18:05)
[2020-03-29] MEDS: atorvastatin 40 mg Tablet 80 MG PO (09:17)
[2020-03-29] MEDS: levothyroxine 50 mcg Tablet PO (09:18)
[2020-03-29] MEDS: sodium bicarbonate 650 mg Tablet PO ×3 (09:18→21:22)
--- NOTE | 2020-03-29 16:44 | P.PN_ITS ---
Subjective Subjective: Interval history: Feels a little tried but he is otherwise ok with no other overt uremic Sx. No edema and no other volume assoc Sx. Passing urine, no obstructive Sx. Bps came down with initiation of his home meds (? outpatient compliance) Medications: Reviewed: Yes Vitals/I&O/Wt Last Vital Signs Temp 97.8 F 03/29/20 15:25 Pulse 61 03/29/20 15:25 Resp 20 H 03/29/20 15:25 BP 160/81 03/29/20 15:25 Pulse Ox 95 03/29/20 15:25 03/29/20 03/29/20 03/29/20 06:59 14:59 22:59 Intake Total 1120 / 3729.000 1660 / 1660 Output Total 700 / 3150 1050 / 1050 Balance 420 / 579.000 610 / 610 Physical Exam Narrative: EXAM NARRATIVE: Constitutional: Awake, conversant HEENT: Wet mucosa, no jvp, non icteric Lungs: Bilaterally clear without discernible wheeze, rales in all lung zones CVS: S1 S2, no murmurs Abdo: Soft, BS ok Ext 4: Minimal edema, peripheral perfusion with no cyanosis Neurological: Grossly non-focal Data : 03/29/20 05:16 03/29/20 05:16 A&P Additional A&P Information 1. ALEKSANDAR on CKD stage 4 - We do not have historic data, however, he gives a clear history of stage IV chronic kidney disease. 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 - Creatinine has increased since yesterday, very troubling as this may well indicate he is approaching ESRD - Creatinine may have increased a little as his Bp came down to normotensive goals No indication for hemodialysis at this time. Following discharge will need to be seen by nephrology in a local clinic. Avoid the usual nephrotoxic agents. 2.Hypertension D/w Dr Black; we will allow his sBps to rise to 150-170 by cutting back on his meds Over the next few days his blood pressure goal will be a systolic of roughly 150 with a long-term goal of less than 130/80 3. Chest and left arm pain. Pending echocardiogram and troponin levels. Defer any further diagnostic evalu ation to Dr. Black. 4. Acidosis on sodium bicarb 5. Hyperphos - mild, may need binder therapy if persistently high Jeevan Mendoza MD Nephrology [phone] Patient seen and examined via telemedicine, with the assistance of the bedside RN Attestations Medical Necessity Statement*: eval for ALEKSANDAR on CKD Coding Level of Care Code Acute Senior Project Controls Specialist for Jennifferg Jeancarlos
[2020-03-29] MEDS: NIFEdipine ER (24 hr) 30 mg Tablet 60 MG PO (18:04)
[2020-03-29] MEDS: tamsulosin 0.4 mg Capsule PO (18:05)
[2020-03-29 19:42] LABS: Anion Gap 15.5 (5-19); Blood Urea Nitrogen 50 mg/dL (8-23); Calcium 8.2 mg/dL (8.5-10.5); Carbon Dioxide 20 mmol/L (22-29); Chloride 107 mmol/L (98-107); Glucose 156 mg/dL (65-115); Osmolality Calculated 303 mOsm/kg (285-295); Potassium 4.5 mmol/L (3.5-5.1); Sodium 138 mmol/L (136-145)
--- NOTE | 2020-03-29 21:05 | P.PN_ITS ---
Subjective Subjective: Interval history: No acute event overnight.Mr camacho is denying any symptoms. B/P is well controlled.SCR is trending down Vitals and labs have been reviewed. Medications: Reviewed: Yes Vitals/I&O/Wt Last Vital Signs Temp 98.1 F 03/29/20 19:47 Pulse 66 03/29/20 19:47 Resp 20 H 03/29/20 19:47 BP 152/75 03/29/20 19:47 Pulse Ox 96 03/29/20 19:47 03/29/20 03/29/20 03/29/20 06:59 14:59 22:59 Intake Total 1120 / 3729.000 1660 / 1660 1558.333 / 3218.333 Output Total 700 / 3150 1050 / 1050 620 / 1670 Balance 420 / 579.000 610 / 610 938.333 / 1548.333 Physical Exam Const: COMMON NORMALS: patient oriented x3 HENMT: COMMON NORMALS: normocephalic, atraumatic, hearing grossly normal bilaterally and external ears normal HEAD & SCALP: normocephalic and atraumatic EXTERNAL EAR: Yes external ears normal Eye: COMMON NORMALS: no scleral icterus GENERAL EYE: appearance normal, both eyes and all related structures Chest: COMMONS NORMALS: normal inspection of the chest and normal palpation of entire chest wall CHEST: Yes Symmetrical chest wall rise Resp: COMMON NORMALS: normal respiratory effort, No retractions, No use of accessory muscles and clear to auscultation bilaterally EFFORT & INSPECTION: Yes symmetric chest movement AUSCULTATION: clear to auscultation bilaterally Cardio: COMMON NORMALS: regular rate, regular rhythm, S1 normal heart sound present, S2 normal heart sound present, No gallops present (Cardio), No murmurs present (Cardio), No rub (Cardio) and Peripheral pulses 2+ throughout RATE: regular rate RHYTHM: regular rhythm HEART SOUNDS: S1 normal heart sound present and S2 normal heart sound present PERIPHERAL PULSES: Peripheral pulses 2+ throughout GI: COMMON NORMALS: Normal to inspection, nondistended, normoactive bowel sounds present, Soft to palpation, non-tender, No hepatosplenomegaly present and no masses AUSCULTATION: Yes normoactive bowel sounds PALPATION: Yes Soft to palpation and Yes No hepatosplenomegaly present RECTAL EXAM: Yes deferred Extremity: COMMON NORMALS: no clubbing, cyanosis or edema and no pedal edema Neuro: COMMON NORMALS: patient oriented x3 Data : 03/29/20 05:16 03/29/20 19:01 A&P Assessment and plan (1) Hypertensive urgency: Russell Camacho is a 60 year old male with past medical history of resistant hypertension, and hypothyroidism, came in with chief complaint of, left-sided chest pain and left arm, since this morning, pain is dull,6/10,no aggravating or allevaiting factors. Apart from the chest pain and the left arm pain, he denies any dizziness, headache, visual disturbances, shortness of breath, nausea, vomiting, abdominal pain, back pain, any weakness in any body part, any urinary complaints. He ran out of his antihypertensive medications for weeks as he lost his insurance. When he came to the ER his blood pressure was 245/105. In ER, CBC CMP troponin, EKG, x-ray chest, was done. He was given hydralazine 10 mg I.V * 1 dose, He was also given clonidine 0.2 mg oral x1 dose, nifedipine 90 er 1 dose. Continue : Resume home medications: Decreased Atenolol to 50 mg oral daily from 100 mg oral daily to acheive the target B/P around 150 mm hg. Clonidine 0.1 mg PRN h daily Nifedepine 60 mg oral daily Hold Lisinopril 40 mg oral daily Hold Lasix 40 mg po daily Get 2D ECHO: Normal LVEF: 65 % , No RWMA , Normal PAP, Renal U.S: Left nephrolithiasis. Renal cortical atrophy. No hydronephrosis Status: Acute (2) Acute kidney injury: ALEKSANDAR V/S ALEKSANDAR ON CKD.Can be due to Hypertensive emergency.Baseline SCR is currently unkown. I.V Hydration, Avoid Nephrotoxic, hold Lisinopril. Renal Rec appreciated. Status: Acute (3) Hypothyroidism: Continue Levothyroxine 50 mcg oral daily Status: Acute (4) Anemia: Likely ACD. Monitor CBC No need for transfusion Status: Acute (5) Thrombocytopenia: Continue to monitor CBC.No signs of active bleeding,petechae,pupura. Will order ,HepB ,Hep C, HIV Status: Acute (6) Hyperlipidemia: Continue Atorvastatin 80 mg oral daily Status: Acute (7) Chest pain: Likely 2/2 to uncontolled HTN. Trend Troponin, serial ekg, Nitro sublingual Blood Pressure control Status: Acute Additional A&P Information DVT PPX: On Heparin 5000 q12 h daily Code status : Full Code Attestations Medical Necessity Statement*: Patient needs to be in hospital for management of Renal failure. Coding Level of Care Code Acute Geophysical Support Specialist for Chg Fwd Diagnoses Hypertensive urgency I16.0 Acute kidney injury N17.9 Hypothyroidism E03.9 Anemia D64.9 Thrombocytopenia D69.6 Hyperlipidemia E78.5 Chest pain R07.9
[2020-03-30] VITALS: BP 138/79; PULSE 66; RESP 20; TEMP 36.8; O2SAT 96
[2020-03-30] MEDS: sodium chloride 0.9% 1,000 ML 999 ML IV (02:50)
[2020-03-30] MEDS: sodium chloride 0.45% 1,000 ML 125 ML IV (02:55)
[2020-03-30 04:00] VITALS: BP 131/62; PULSE 69; RESP 12; TEMP 36.6; O2SAT 92
[2020-03-30 06:35] LABS: Anion Gap 16.3 (5-19); Blood Urea Nitrogen 44 mg/dL (8-23); Calcium 8.5 mg/dL (8.5-10.5); Carbon Dioxide 19 mmol/L (22-29); Chloride 107 mmol/L (98-107); Glomerular Filtration Rate 9.2 mL/min (90-130); Glucose 151 mg/dL (65-115); Osmolality Calculated 300 mOsm/kg (285-295); Potassium 4.3 mmol/L (3.5-5.1); Sodium 138 mmol/L (136-145)
[2020-03-30] MEDS: heparin 5,000 unit/mL INJ 1 mL 5000 UNIT SUBCUT (06:45)
[2020-03-30 07:11] VITALS: BP 137/75; PULSE 64; RESP 20; TEMP 36.7; O2SAT 93
[2020-03-30] MEDS: atorvastatin 40 mg Tablet 80 MG PO (08:03)
[2020-03-30] MEDS: atenolol 50 mg Tablet PO (08:03)
[2020-03-30] MEDS: levothyroxine 50 mcg Tablet PO (08:03)
[2020-03-30] MEDS: aspirin 81 mg Chew Tablet PO (08:04)
[2020-03-30] MEDS: sodium bicarbonate 650 mg Tablet PO (08:04)
--- NOTE | 2020-03-30 09:33 | PM.PN ---
Subjective Subjective: Interval history: Mild fatigue but no other uremic Sx. No edema and no other overt hypervolemic Sx. Passing urine. Some sciatic nerve discomfort. Bps controlled Medications: Reviewed: Yes Vitals/I&O/Wt Last Vital Signs Temp 98.0 F 03/30/20 07:11 Pulse 64 03/30/20 07:11 Resp 20 H 03/30/20 07:11 BP 137/75 03/30/20 07:11 Pulse Ox 93 03/30/20 07:11 03/29/20 03/30/20 03/30/20 22:59 06:59 14:59 Intake Total 2158.333 / 3818.333 1600 / 5418.333 480 / 480 Output Total 1240 / 2290 1625 / 3915 600 / 600 Balance 918.333 / 1528.333 -25 / 1503.333 -120 / -120 Physical Exam Narrative: EXAM NARRATIVE: Constitutional: Awake, conversant HEENT: Wet mucosa, no jvp, non icteric Lungs: Bilaterally clear without discernible wheeze, rales in all lung zones CVS: S1 S2, no murmurs Abdo: Soft, BS ok Ext 4: Minimal edema, peripheral perfusion with no cyanosis Neurological: Grossly non-focal Data : 03/29/20 05:16 03/30/20 05:12 A&P Additional A&P Information 1. ALEKSANDAR on CKD stage 4 > likely to be stage 5 now - We do not have historic data, however, he gives a clear history of stage IV chronic kidney disease. 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 - Creatinine swinging up and down but eGFR is pretty stable 8-10ml/min - No indication for hemodialysis at this time. Following discharge will need to be seen by nephrology in a local clinic: I have discussed his care with Dr Lundberg who will see him in the clinic within the next 2 weeks Avoid the usual nephrotoxic agents. - ok for DC from my perspective, the big part of his care now is to see Dr Lundberg expeditiously in the outpatient clinic, learn about dialysis modalities and have expeditious preparation for them Jeevan Mendoza MD Nephrology [phone] Patient seen and examined via telemedicine, with the assistance of the bedside RN Attestations Medical Necessity Statement*: eval for ALEKSANDAR/CKD Coding Level of Care Code Acute Associate Medical Director for Dari Arshad
[2020-03-30] MEDS: acetaminophen 325 mg Tablet 650 MG PO (10:22)
[2020-03-30 10:52] VITALS: BP 142/75; PULSE 68; RESP 22; TEMP 36.4; O2SAT 96
--- NOTE | 2020-03-30 11:18 | PM.DCS ---
Discharge Providers Date of Admission: 03/27/20 17:43 Date of Discharge: March 30, 2020 Attending Provider at Admission: Sylvain Black MD Attending Provider at Discharge: Quincy Gastelum MD Consults: Nephrology: Dr. Almazan Diagnoses at Discharge Discharge Diagnosis (1) Hypertensive urgency: Status: Acute (2) Acute kidney injury: Status: Acute (3) Hypothyroidism: Status: Acute (4) Anemia: Status: Acute (5) Thrombocytopenia: Status: Acute (6) Hyperlipidemia: Status: Acute (7) Chest pain: Status: Acute Reason for Visit Reason for Visit: chest pain/left arm pain Hospital Course Discharge Summary: Russell Camacho is a 60 year old male with past medical history of resistant hypertension, and hypothyroidism, came in with chief complaint of, left-sided chest pain and left arm, since this morning, pain is dull,6/10,no aggravating or allevaiting factors. Apart from the chest pain and the left arm pain, he denies any dizziness, headache, visual disturbances, shortness of breath, nausea, vomiting, abdominal pain, back pain, any weakness in any body part, any urinary complaints. He has had high blood pressure since the age of 28, intermittently controlled and intermittently on a variety of different medications. He has not had any evaluation for secondary causes. Of note he does have symptoms of obstructive sleep apnea, was tested for this number of years ago which was okay, however no recent testing. It is noted that he is obese. No other history of adrenal disorders, and no history of renal artery disease or other vascular bed disease. He ran out of his antihypertensive medications for weeks as he lost his insurance. When he came to the ER his blood pressure was 245/105. He was admitted to the hospital for hypertensive emergency. His blood work in the ER on day of admission showed 5.9, hemoglobin of 9, sodium of 142, creatinine of 7.2 with BUN of 47, AST/ALT of 12/18, baseline troponin of 40 with 2-hour delta of -1. He was admitted to the hospital and was treated with IV antihypertensives. He responded well to the treatment. His hypertensive emergency is most likely because of noncompliance. Because of acute renal failure nephrology was consulted. 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 Hypertensives were adjusted. Given extreme renal failure his goal blood pressure is less than 150/90 mmHg for now chronically less than 130/80 mmHg. He underwent renal imaging to r/o obstructive uropthy.Renal ultrasound showed left nephrolithiasis without any obstruction with renal cortical atrophy. Echocardiogram was done which showed 55% with no regional wall motion abnormality with intermediate diastolic dysfunction. His electrolytes remained stable and creatinine continues to remain stable with good urine output. On the day of discharge his creatinine is 6.2 with BUN of 44. And as per nephrology he has no indication of hemodialysis at this time. He was advised to follow-up with Dr. Lundberg from nephrology in 2 weeks with possible hemodialysis in future. He is been discharged hemodynamically stable condition with just his antihypertensive with advice follow-up with kosher dietary service manager and compliant with medications. Medications been provided to him next to bed. Physical Exam Const: COMMON NORMALS: patient oriented x3 HENMT: COMMON NORMALS: normocephalic, atraumatic, hearing grossly normal bilaterally and external ears normal HEAD & SCALP: normocephalic and atraumatic EXTERNAL EAR: Yes external ears normal Eye: COMMON NORMALS: no scleral icterus GENERAL EYE: appearance normal, both eyes and all related structures Chest: COMMONS NORMALS: normal inspection of the chest and normal palpation of entire chest wall CHEST: Yes Symmetrical chest wall rise Resp: COMMON NORMALS: normal respiratory effort, No retractions, No use of accessory muscles and clear to auscultation bilaterally EFFORT & INSPECTION: Yes symmetric chest movement AUSCULTATION: clear to auscultation bilaterally Cardio: COMMON NORMALS: regular rate, regular rhythm, S1 normal heart sound present, S2 normal heart sound present, No gallops present (Cardio), No murmurs present (Cardio), No rub (Cardio) and Peripheral pulses 2+ throughout RATE: regular rate RHYTHM: regular rhythm HEART SOUNDS: S1 normal heart sound present and S2 normal heart sound present PERIPHERAL PULSES: Peripheral pulses 2+ throughout GI: COMMON NORMALS: Normal to inspection, nondistended, normoactive bowel sounds present, Soft to palpation, non-tender, No hepatosplenomegaly present and no masses AUSCULTATION: Yes normoactive bowel sounds PALPATION: Yes Soft to palpation and Yes No hepatosplenomegaly present RECTAL EXAM: Yes deferred : COMMON NORMALS: Yes no CVA tenderness BLADDER/KIDNEY EXAM: Yes no CVA tenderness Back/Pelvis: COMMON NORMALS: no CVA tenderness Extremity: COMMON NORMALS: no clubbing, cyanosis or edema and no pedal edema Neuro: COMMON NORMALS: patient oriented x3 Discharge Data Data Completed and Pending: Completed Studies During Hospitalization Category Date Time Status XR chest 1V hyacinth ble 11359 Stat Exams 03/27/20 13:06 Completed CV echo complete* [id number] Routine Ultrasound 03/28/20 19:14 Completed US renal BI with bladder Routine Ultrasound 03/28/20 19:15 Completed Pending at discharge Category Date Time Status Complete Blood Co unt w/Auto AM LABS Lab 03/30/20 04:00 Ordered Comprehensive Met abolic Panel AM LA BS Lab 03/30/20 04:00 Ordered Free T4 Free Thyr oxine Routine Lab 03/30/20 11:17 Ordered Magnesium AM LABS Lab 03/30/20 04:00 Ordered Phosphorus AM LAB S Lab 03/30/20 04:00 Ordered T3 Free Routine Lab 03/30/20 11:17 Ordered Urine Creatinine Routine Lab 03/29/20 22:01 Ordered Urine Protein Ran dom Routine Lab 03/29/20 22:01 Ordered Labs from last 24 hours 03/30/20 03/29/20 05:12 19:01 Sodium 138 138 Potassium 4.3 4.5 Chloride 107 107 Carbon Dioxide 19 L 20 L Anion Gap 16.3 15.5 BUN 44 H 50 H Creatinine 6.2 H* 5.8 H* GFR Calculation 9.2 L 10.0 L Glucose 151 H 156 H Calculated Osmolal ity 300 H 303 H Calcium 8.5 8.2 L Vitals: Last Vital Signs Temp 97.6 F 03/30/20 10:52 Pulse 68 03/30/20 10:52 Resp 22 H 03/30/20 10:52 BP 142/75 03/30/20 10:52 Pulse Ox 96 03/30/20 10:52 Discharge Plan Discharge Patient Disposition: Home Condition: Stable Prescriptions: New tamsulosin 0.4 mg Capsule 0.4 mg PO DAILY@1700 Qty: 30 RF: 0 sodium bicarbonate 650 mg Tablet 650 mg PO TID Qty: 90 RF: 0 Miralax 17 gram/dose powder 17 gm PO DAILY PRN (Reason: constipation) Qty: 119 RF: 0 Continued atorvastatin 80 mg Tablet 80 mg PO DAILY RF: 0 clonidine HCl 0.1 mg Tablet 0.1 mg PO DAILY PRN (Reason: BLOOD PRESSURE) RF: 0 levothyroxine 50 mcg Tablet 50 mcg PO DAILY RF: 0 aspirin 81 mg Tablet,Chewable 81 mg PO BID RF: 0 ergocalciferol (vitamin D2) 1,250 mcg (50,000 unit) Capsule 1,250 mcg PO Q7D RF: 0 nifedipine 90 mg Tablet Extended Release 90 mg PO DAILY Qty: 30 RF: 0 Changed atenolol 100 mg Tablet 50 mg PO DAILY Qty: 30 RF: 0 colchicine 0.6 mg Capsule 0.6 mg PO DAILY Qty: 0 RF: 0 Discontinued furosemide [Lasix] 40 mg Tablet 40 mg PO DAILY RF: 0 lisinopril 40 mg Tablet 40 mg PO DAILY RF: 0 Discharge Orders: Discharge Order (Routine); Ordered 03/30/20 Ordered By: Quincy Gastelum Referrals: Fernando Noble MD [Physician] - 04/02/20 10:30 am (You have a hospital followup with Dr Noble at his office [facility] on April 02 at 10:30 ) Jalen Lundberg MD [Referring] - 7-10 days (Dr. Lundberg's office will be calling you to set an appointment to be seen here in [place].) Discharge Diet: Usual diet Discharge Activity: Increase activity as tolerated Patient Instructions: Tamsulosin (By mouth), Polyethylene Glycol 3350 (By mouth) Activity Restrictions/Additional Instructions: Follow-up with your primary care provider on the set appointment on April 02 at 10:30 AM. You are supposed to follow-up with Dr. Lundberg/kosher dietary service manager within next 2 weeks. Your antihypertensives her blood pressure medications have been adjusted. Discharge Date/Time: 03/30/20 13:50 Discharge Attestations Time Spent in Discharge Care*: greater than 30 min Specific Discharge Activities: Specific discharge activities: educating patient, discussing with pcp/other providers, discussing with case reviewer/social workers/dc planners, documenting/other paperwork and evaluating patient/reviewing data Status at Discharge: Cognitive status at discharge: cognitively intact, Behavioral status at discharge: cooperative, Functional status at discharge: independent ambulation Overall status at discharge: patient has a new baseline Quality Metrics Clinical Quality Measures During this hospital stay, did patient experience: None Coding Level of Care Code Acute Floor Covering Printer for g Fwd Exam Comprehensive Diagnoses Hypertensive urgency I16.0 Acute kidney injury N17.9 Hypothyroidism E03.9 Anemia D64.9 Thrombocytopenia D69.6 Hyperlipidemia E78.5 Chest pain R07.9
[2020-03-30] MEDS: polyethylene glycol 3350 Pkt 17 gm PO (12:45)
[2020-03-30 13:33] VITALS: BP 153/84; PULSE 62; RESP 15; TEMP 36.8; O2SAT 97
[2020-03-30 13:34] VITALS: BP 153/84; PULSE 62; RESP 15; TEMP 36.8; O2SAT 97
[2020-03-30 15:25] LABS: Free T4 Free Thyroxine 0.86 ng/dL (0.82-1.77); T3 Free 2.7 PG/ML (2.0-4.4)
[2020-03-30 19:01] LABS: Basophils % 0.6 %; Eosinophils # 0.3 10^3/uL (0.0-0.8); Eosinophils % 5.4 %; Hematocrit 27.8 % (42.0-52.0); Hemoglobin 8.1 g/dL (11.7-16.6); Lymphocytes % 20.8 %; Mean Corpuscular HGB Conc 29.1 g/dL (30.0-36.0); Mean Corpuscular Hemoglobin 28.8 pg (28.0-34.0); Mean Corpuscular Volume 98.9 fL (80-94); Mean Platelet Volume 11.6 fL (7.4-10.4); Monocytes # 0.4 10^3/uL (0.2-0.9); Neutrophils # 3.14 10^3/uL (1.8-7.7); Neutrophils % 64.8 %; Nucleated Red Blood Cells % 0 %; Platelet Count 122 10^3/cmm (130-400); Red Blood Count 2.81 10^6/uL (4.1-5.3); Red Cell Distribution Width 14.8 % (12.1-15.1); White Blood Count 4.9 10^3/uL (4.0-10.0)
[2020-03-31 08:20] LABS: Alanine Aminotransferase 21 U/L (0-41); Albumin Level 3.9 g/dL (3.5-5.2); Alkaline Phosphatase 57 IU/L (40-130); Anion Gap 14.4 (5-19); Aspartate Amino Transferase 15 U/L (0-40); Blood Urea Nitrogen 49 mg/dL (8-23); Calcium 8.3 mg/dL (8.5-10.5); Carbon Dioxide 20 mmol/L (22-29); Chloride 108 mmol/L (98-107); Globulin 1.9 g/dL (1.3-4.6); Glomerular Filtration Rate 9.6 mL/min (90-130); Glucose 152 mg/dL (65-115); Magnesium 2.3 mg/dL (1.7-2.3); Osmolality Calculated 302 mOsm/kg (285-295); Phosphorus 4.6 mg/dL (2.5-4.5); Potassium 4.4 mmol/L (3.5-5.1); Sodium 138 mmol/L (136-145); Total Bilirubin 0.2 mg/dL (0.15-1.2); Total Protein 5.8 g/dL (6.6-8.7)
== END 2020-03-30 13:50 | disposition home or self-care (01) | DRG 305 ==
LOC: ER 17:57 → CSU 18:31
PROVIDERS: Internal Medicine Nephrology; Nurse Practitioner Family; Admitting Provider Internal Medicine; Emergency Provider Family Medicine; Visit Provider Student in an Organized Health Care Education/Training Program
DX: I16.0 Hypertensive urgency (principal); N18.4 Chronic kidney disease, stage 4 (severe); N17.9 Acute kidney failure, unspecified; N11.9 Chronic tubulo-interstitial nephritis, unspecified; E03.9 Hypothyroidism, unspecified; I12.9 Hypertensive chronic kidney disease with stage 1 through stage 4 chronic kidney disease, or unspecified chronic kidney disease; Z91.120 Patient's intentional underdosing of medication regimen due to financial hardship; D63.1 Anemia in chronic kidney disease; D69.6 Thrombocytopenia, unspecified; E78.5 Hyperlipidemia, unspecified; G47.33 Obstructive sleep apnea (adult) (pediatric); E66.9 Obesity, unspecified; Z68.36 Body mass index [BMI] 36.0-36.9, adult; N20.0 Calculus of kidney; Z79.82 Long term (current) use of aspirin
CPT/HCPCS: 12345; 36415; 71045; 76770; 76857; 80048; 80053; 82550; 82570; 83735; 84100; 84156; 84300; 84439; 84443; 84481; 84484; 84550; 85025; 93005; 93306; 96372; 96375; 99284; J0360; J1644; J2405; J7030; Q3014

== ENCOUNTER → 2020-04-10 09:50 | Outpatient (BNVA) | payer MEDICARE, SELFPAY | PROVIDERS: Visit Provider Family Medicine Adult Medicine | DX: I10 Essential (primary) hypertension (principal); E78.5 Hyperlipidemia, unspecified; D69.6 Thrombocytopenia, unspecified; R07.9 Chest pain, unspecified; I16.0 Hypertensive urgency; E66.09 Other obesity due to excess calories; D64.9 Anemia, unspecified; N18.5 Chronic kidney disease, stage 5; E03.9 Hypothyroidism, unspecified | CPT/HCPCS: 80053; 80061; 82043; 84443; 85025 ==

== ENCOUNTER → 2020-04-24 12:13 | Outpatient (BNVA) | payer MEDICARE, SELFPAY | PROVIDERS: Visit Provider Family Medicine Adult Medicine | DX: D64.9 Anemia, unspecified (principal); D69.6 Thrombocytopenia, unspecified; E03.9 Hypothyroidism, unspecified; E78.5 Hyperlipidemia, unspecified; I10 Essential (primary) hypertension; N18.5 Chronic kidney disease, stage 5 | CPT/HCPCS: 80053 ==

== ENCOUNTER → 2020-05-21 15:03 | Outpatient (BNVA) | payer MEDICARE, SELFPAY | PROVIDERS: Visit Provider Surgery | DX: Z20.828 Contact with and (suspected) exposure to other viral communicable diseases (principal); Z01.812 Encounter for preprocedural laboratory examination | CPT/HCPCS: 87635 ==

== ENCOUNTER 2020-05-27 10:47 | Day surgery (SDC) | payer MEDICARE, SELFPAY ==
[2020-05-26 14:43] VITALS: BMI 38.6
[2020-05-27] VITALS (7 sets, daily range): BP systolic 153–185; BP diastolic 86–99; PULSE 74–85; RESP 13–20; TEMP 36.3–36.6; O2SAT 95–98
[2020-05-27] MEDS: sodium chloride 0.9% 1,000 ML 30 ML IV (11:27)
--- NOTE | 2020-05-27 11:33 | ANES.PREANE2 ---
Pre-Anesthetic Assessment Pre-Anesthetic Assessment: Height/Weight: Height 1.85 m Weight 132.903 kg Temp Pulse Resp BP Pulse Ox 97.3 F L 85 16 153/86 97 05/27/20 11:18 05/27/20 11:18 05/27/20 11:18 05/27/20 11:18 05/27/20 11:18 Preop Diagnosis: ckd Proposed Procedure: Operation Date: 05/27/20 12:25 Proposed Procedures p laparoscopic possible open peritoneal dialysis catheter placement left exteriorized 66238 N18.5(Left) - Robb Barber MD Familial anesthetic complications: None Was Beta Kelly taken within 24 hours: N/A Last intake: Intake Last Liquid Date 05/27/20 Last Liquid Time 06:30 Last Solid Date 05/26/20 Last Solid Time 18:00 Social: Social History: No alcohol and No tobacco Exam: Pre-Anes Outpt Exam: alert, oriented x 3, clear to auscultation bilaterally and regular rate & rhythm Airway: Cervical ROM: WNL MP: 4 Dentition: Chipped (4-5 damaged teeth) Pulmonary: Pulmonary: COPD and Sleep apnea CV/HEM: CV/HEM: Anemia and Palp Comments: Echo 04/07 - EF 65% : : Chronic renal Insufficiency Comments: CKD Metabolic: Metabolic: DM, Hyperlipidemia, Morbid obesity and Thyroid Anesthetic Plan: ASA status: 3 Anesthesia: General Risk of > 500 ml blood loss (7ml/kg in children): No Meds/Allergies Current Medications: Current Medications Generic Name Dose Route Start Last Admin Trade Name Freq PRN Reason Stop Dose Admin Sodium Chloride 1,000 mls @ 30 ml s/hr 05/27/20 11:00 05/27/20 11:27 Sodium Chloride 0.9% IV 05/28/20 10:59 30 mls/hr .Q24H JANEY Administration PFSH Anesthesia PFSH: Medical History Chronic kidney disease (CKD) stage G5/A1, glomerular filtration rate (GFR) less than or equal to 15 mL/min/1.73 square meter and albuminuria creatinine ratio less than 30 mg/g Diverticulitis Hyperlipidemia Hypertension with albuminuria Hypertensive urgency Hypothyroidism JEVON (obstructive sleep apnea) Surgical History H/O circumcision Family History Mother Anesthesia complication allergic reaction and on surgical table Other CAD (coronary artery disease) Hypertension Stroke Denies family history of Diabetes Bleeding disorder Social History Smoking and tobacco status: never smoked Alcohol intake: never Household members: spouse Marital status: Current occupational status: disabled History of recent travel: No Data Anesthesia Cardiac Studies: No Data to Display
--- NOTE | 2020-05-27 14:05 | P.HP_ITS ---
Same Day Surgery H&P Indication for Procedure/HPI DATE OF PROCEDURE: May 27, 2020 CHIEF COMPLAINT/INDICATIONFOR SURGICAL PROCEDURE: dialysis catheter PREOP DIAGNOSIS: ckd PLANNED PROCEDRUE: Operation Date: 05/27/20 12:25 Proposed Procedures p laparoscopic possible open peritoneal dialysis catheter placement left exteriorized 13904 N18.5(Left) - Robb Barber MD Medications/Allergies* Home Medications Medication Instructions Recorded Confirmed Type clonidine 0.2 mg/24 hr weekly 1 patch TRANSDERMAL .weekly each 04/16/20 05/27/20 History transdermal patch doxazosin 4 mg tablet 4 mg PO .hs tab 04/16/20 05/27/20 History Allergies/Adverse Reactions Allergy/AdvReac Type Severity Reaction Status Date / Time No Known Allergies Allergy Verified 05/27/20 11:13 Current Medications: Generic Name Dose Route Start Last Admin Trade Name Freq PRN Reason Stop Dose Admin Sodium Chloride 1,000 mls @ 30 mls/hr 05/27/20 11:00 05/27/20 11:27 Sodium Chloride 0.9% IV 05/28/20 10:59 30 mls/hr .Q24H JANEY Administration Pertinent History/Comorbid Conditions* Medical History (Updated 05/04/20 @ 10:39 by Robb Barber MD) Chronic kidney disease (CKD) stage G5/A1, glomerular filtration rate (GFR) less than or equal to 15 mL/min/1.73 square meter and albuminuria creatinine ratio l ess than 30 mg/g Diverticulitis Hyperlipidemia Hypertension with albuminuria Hypertensive urgency Hypothyroidism JEVON (obstructive sleep apnea) Surgical History (Updated 05/04/20 @ 10:39 by Robb Barber MD) H/O circumcision Family History (Updated 05/04/20 @ 10:24 by Maryann Au LPN) CAD (coronary artery disease) Anesthesia complication Mother allergic reaction and on surgical table Hypertension Stroke Denies family history of Diabetes Bleeding disorder Social History Smoking and tobacco status: never smoked Alcohol intake: never Household members: spouse Marital status: Current occupational status: disabled History of recent travel: No Pertinent Exam Findings alert and oriented x 3 Recommendations Surgery/Procedure today Coding Level of Care Code Acute Oracle Application Consultant for Dari Arshad
[2020-05-27] MEDS: heparin 5,000 unit/mL INJ 1 mL 5000 UNIT IRRIGATION (17:01)
--- NOTE | 2020-05-27 17:16 | P.OP_ITS ---
Operative Report Date of procedure: May 27, 2020 Pre-op Diagnosis: Chronic kidney disease Post-op diagnosis: same Procedure Done: Laparoscopic placement of peritoneal dialysis catheter Pathology: none sent Surgeon: Robb Barber Anesthesia: General Condition: stable Disposition: PACU Procedure: The patient was taken to the operating room and intubated under general anesthesia after IV antibiotic had been administered. The abdomen was prepped and draped in a sterile manner. Using 15 blade a 1 cm incision was made in the left upper quadrant and a Veress needle introduced to create 15 mm of pneumoperitoneum. Using Optiview technique, a 5 mm port was placed and a 5 mm 30? scope was introduced. Another 5 mm port was placed in the right lower quadrant at the level of the umbilicus in the midclavicular line. The pigtail peritoneal dialysis catheter was placed on the abdominal wall and the position marked, an introducer needle was passed through the abdominal wall to the right of the midline inferior to the umbilicus, guidewire passed through the introduc er needle, the needle was removed and a dilator sheath was placed over the guidewire and inner dilator and guidewire was removed. The pigtail catheter was introduced as the peel-away sheath was removed with the tip of the catheter in the pelvis and the cuff within the rectus muscle. The catheter was tunneled proximally to exit in the left upper quadrant. The catheter was attached to a saline bag and there was good inflow and outflow noted. 20 mL of 1:10,000 heparin was injected into the tube. The ports were removed under direct visualization and there was no bleeding from the port sites. The skin at the 5 mm port sites were closed using 4-0 Monocryl and surgical glue.. Sterile dressings were applied at the catheter site. The patient was intubated and transferred to recovery room in stable condition.
[2020-05-27] MEDS: HYDROcodone-acetaminophen 5-325 mg Tablet 1 TAB PO (18:01)
--- NOTE | 2020-05-27 18:38 | ANE.PACU2 ---
Inpatient post-anesthesia follow up: Airway intact: Yes Vital signs: Temperature 98 F Pulse Rate 75 Respiratory Rate 18 Blood Pressure 172/96 Pulse Oximetry 96 Oxygen Delivery Me thod Room Air Oxygen Flow Rate 2 Fraction of Inspir ed Oxygen Hydration adequate: Yes Nausea and vomiting: No Pain level: 2 Mental status: Baseline
== END 2020-05-27 19:00 | disposition home or self-care (01) ==
PROVIDERS: Visit Provider Surgery
PROC: 0WHG43Z Insertion of Infusion Device into Peritoneal Cavity, Percutaneous Endoscopic Approach (ICD-10-PCS; CPT 49324; principal; 2020-05-27 12:25)
DX: E11.22 Type 2 diabetes mellitus with diabetic chronic kidney disease (principal); N18.9 Chronic kidney disease, unspecified; J44.9 Chronic obstructive pulmonary disease, unspecified; G47.30 Sleep apnea, unspecified; E78.5 Hyperlipidemia, unspecified; E66.01 Morbid (severe) obesity due to excess calories; Z68.38 Body mass index [BMI] 38.0-38.9, adult; G47.33 Obstructive sleep apnea (adult) (pediatric); E03.9 Hypothyroidism, unspecified; Z82.49 Family history of ischemic heart disease and other diseases of the circulatory system
CPT/HCPCS: 49324; 12345; C1750; J0690; J1100; J1644; J2405; J2704; J3010; J3490; J7030

== ENCOUNTER → 2020-06-22 14:51 | Outpatient (BNVA) | payer MEDICARE, SELFPAY | PROVIDERS: PCP Family Medicine Adult Medicine; Visit Provider Family Medicine Adult Medicine | DX: D64.9 Anemia, unspecified (principal); D69.6 Thrombocytopenia, unspecified; E03.9 Hypothyroidism, unspecified; E78.5 Hyperlipidemia, unspecified; N18.5 Chronic kidney disease, stage 5; R80.9 Proteinuria, unspecified; I12.9 Hypertensive chronic kidney disease with stage 1 through stage 4 chronic kidney disease, or unspecified chronic kidney disease | CPT/HCPCS: 80069; 82310; 82728; 83550; 83970; 84466; 85025; 86705; 86706; 86803; 87340 ==

== ENCOUNTER 2020-06-23 20:00 | Outpatient (CLI) | payer MEDICARE, SELFPAY | END 2020-06-23 20:01 | disposition home or self-care (01) | LOC: SLEEP 06-24 10:14 | PROVIDERS: PCP Family Medicine Adult Medicine; Visit Provider Family Medicine Adult Medicine | DX: G47.33 Obstructive sleep apnea (adult) (pediatric) (principal); E66.09 Other obesity due to excess calories | CPT/HCPCS: 95811 ==

== ENCOUNTER → 2020-06-29 16:52 | Outpatient (BNVA) | payer MEDICARE, SELFPAY | PROVIDERS: PCP Family Medicine Adult Medicine; Visit Provider Nurse Practitioner Family | DX: Z20.822 Contact with and (suspected) exposure to COVID-19 (principal); J06.9 Acute upper respiratory infection, unspecified | CPT/HCPCS: 87635 ==

== ENCOUNTER 2020-07-02 09:25 | Outpatient (CLI) | payer MEDICARE, SELFPAY ==
[2020-07-02] VITALS (7 sets, daily range): BP systolic 122–177; BP diastolic 84–101; PULSE 80–96; RESP 16–18; TEMP 36.6; O2SAT 94–97; BMI 37.2
--- NOTE | 2020-07-02 09:43 | AMB.MCA ---
Patient Information Referred by: Ole Symptom onset date: 06/25/20 COVID 19 common symptoms: positive cough, non-productive cough, fatigue, body aches and nasal congestion COVID 19 other sytmptoms: negative chest pressure, chest pain, pleuritic pain, requiring oxygen, requiring more oxygen, respiratory distress, cyanosis, lethargy, confusion, new neurological complaints or other concerning symptoms Severity: mild Treatment prior to arrival: none [facility] COVID test results: Nasal/Oral Coronavirus 2019 PCR Detected H 06/29/20 16:52 06/29/20 Criteria/Plan Inclusion/Exclusion Criteria weight >/= 40kg, + direct test </= 10 days ago and symptom onset </= 10 days ago BMI >/= 35, has chronic kidney disease and age >/= 55 and has hypertension not requiring hospitalization, not requiring oxygen (if not chronically on oxygen) and no increase oxygen requirement (if chronically on oxygen) Patient education patient/caregiver received/reviewed fact sheet, Emergency Use Authorization/unapproved drug status discussed with patient/caregiver, alternatives to this treatment discussed with patient/caregiver, risks and benefits of medication reviewed with patient/caregiver, patient/caregiver given opportunity for questions, which were answered and patient/caregiver consents to receiving Monoclonal Antibody Treatment Plan for treatment Meets criteria for Monoclonal Antibody infusion
--- NOTE | 2020-07-08 13:41 | DCPLANNER ---
Addendum entered by Caitie Koch 07/14/20 14:15: artist's manager called to check on patient after getting the BAM infusion. Unable to speak with patient at this time, a voicemail was left for patient. Original Note: artist's manager had message that patient received the BAM infusion. artist's manager called to check on patient after getting the infusion, unable to speak with patient at this time, a voicemail was left for patient to return pillowcase folder phone call.
== END 2020-07-02 12:42 | disposition home or self-care (01) ==
PROVIDERS: PCP Family Medicine Adult Medicine; Visit Provider Nurse Practitioner Family
DX: U07.1 COVID-19 (principal)
CPT/HCPCS: 96365; J7050

== ENCOUNTER 2021-01-14 08:01 | Outpatient (CLI) | payer MEDICARE, SELFPAY ==
--- NOTE | 2021-01-14 08:15 | XR_ITS ---
WS: [id number] XR chest 1V portable [id number] REASON FOR EXAM: Cough x 5 days with COVID exposure 2 weeks ago FINDINGS: The heart and mediastinum are within normal limits. Calcified granulomatous changes in both hemithoraces. No active pulmonary parenchymal pleural disease is noted. Degenerative spondylosis in the mid and lower thoracic spine, the bony thorax is otherwise intact. XR/XR chest 1V portable [id number] IMPRESSION: No acute chest abnormality.
== END 2021-01-14 08:02 | disposition home or self-care (01) ==
PROVIDERS: PCP Family Medicine Adult Medicine; Visit Provider Family Medicine Adult Medicine
DX: R05 Cough (principal); Z20.822 Contact with and (suspected) exposure to COVID-19
CPT/HCPCS: 71045; 87635

== ENCOUNTER → 2021-01-26 14:03 | Outpatient (BNVA) | payer MEDICARE, SELFPAY | PROVIDERS: PCP Family Medicine Adult Medicine; Visit Provider Family Medicine Adult Medicine | DX: I10 Essential (primary) hypertension (principal); D69.6 Thrombocytopenia, unspecified; L81.9 Disorder of pigmentation, unspecified; R80.9 Proteinuria, unspecified; E66.09 Other obesity due to excess calories | CPT/HCPCS: 85025 ==

== ENCOUNTER 2021-03-26 06:57 | Outpatient (CLI) | payer MEDICARE, SELFPAY ==
--- NOTE | 2021-03-26 07:01 | US_ITS ---
WS: [id number] ULTRASOUND ABDOMEN LIMITED CLINICAL INFORMATION: GENERALIZED ABDOMINAL PAIN;FLANK PAIN RIGHT COMPARISON: March 28, 2020 FINDINGS: Liver Size: Enlarged Craniocaudal length: 18.7 cm. Echogenicity: Heterogeneous Surface nodularity: None. Mass (size and location): None. Bile ducts Intrahepatic ducts: Normal. Common bile duct diameter: 0.4 cm. Gallbladder Normal. Gallstones: None. Gallbladder sludge: None. Gallbladder wall thickening: None. Pericholecystic fluid: None. Sonographic Pace sign: Absent. Pancreas Not well seen due to bowel gas. Right kidney: Somewhat atrophic with increased echogenicity can be seen with medical renal disease. I ncidental small simple right renal cysts largest measuring 1.0 x 0.8 x 0.9 cm. Hydronephrosis: None. Size: 11.0 cm x 5.2 cm x 3.9 cm. Abdominal aorta and IVC Visualized portions are normal. Ascites: None. US/US abdomen limited [id number] IMPRESSION: 1. Mild hepatomegaly diffuse fatty infiltration. 2. Gallbladder is normal. 3. No hydronephrosis in right kidney. 4. Somewhat atrophic right kidney with increased echogenicity can be seen with medical renal disease. This is similar in appearance to 2019
== END 2021-03-26 06:58 | disposition home or self-care (01) ==
LOC: US 06:59
PROVIDERS: PCP Family Medicine Adult Medicine; Visit Provider Internal Medicine Nephrology
DX: R10.84 Generalized abdominal pain (principal); R16.0 Hepatomegaly, not elsewhere classified; K76.0 Fatty (change of) liver, not elsewhere classified; N26.1 Atrophy of kidney (terminal)
CPT/HCPCS: 76705

== ENCOUNTER → 2021-05-19 14:24 | Outpatient (BNVA) | payer MEDICARE, SELFPAY | PROVIDERS: PCP Family Medicine Adult Medicine; Visit Provider Surgery | DX: Z20.822 Contact with and (suspected) exposure to COVID-19 (principal); K59.00 Constipation, unspecified | CPT/HCPCS: 87635 ==

== ENCOUNTER 2021-05-21 07:29 | Day surgery (SDC) | payer MEDICARE, SELFPAY ==
--- NOTE | 2021-05-21 07:47 | ANES.PREANE2 ---
Pre-Anesthetic Assessment Pre-Anesthetic Assessment: Height/Weight: Height 1.85 m Preop Diagnosis: Chronic kidney disease Proposed Procedure: Operation Date: 05/21/21 08:45 Proposed Procedures p Colonoscopy 67728 k59.00(Not Applicable) - Robb Barber MD Was Beta Kelly taken within 24 hours: N/A Was Clonidine taken within 24 hours: Yes Social: Social History: No alcohol and No tobacco Exam: Pre-Anes Outpt Exam: alert, oriented x 3, clear to auscultation bilaterally and regular rate & rhythm Airway: Submandibular: WNL Cervical ROM: WNL MP: 2 Dentition: Chipped Pulmonary: Pulmonary: Sleep apnea CV/HEM: CV/HEM: Anemia and HTN : : Chronic renal Insufficiency Metabolic: Metabolic: Hyperlipidemia, Morbid obesity and Thyroid Anesthetic Plan: ASA status: 3 Anesthesia: MAC Risk of > 500 ml blood loss (7ml/kg in children): No PFSH Anesthesia PFSH: Medical History (Updated 05/04/21 @ 13:31 by Robb Barber MD) Chronic kidney disease (CKD) stage G5/A1, glomerular filtration rate (GFR) less than or equal to 15 mL/min/1.73 square meter and albuminuria creatinine ratio less than 30 mg/g COVID-19 Positive test 06/29/2020, Neg test 01/14/2021 Diverticulitis Gout Hyperlipidemia Hypertension with albuminuria Hypertensive urgency Hypothyroidism JEVON (obstructive sleep apnea) Peritoneal dialysis status Pigmentation abnormality of skin Tachycardia URI (upper respiratory infection) Surgical History H/O circumcision Peritoneal dialysis catheter in place (05/27/20) Family History Mother Anesthesia complication allergic reaction and on surgical table Other CAD (coronary artery disease) Hypertension Stroke Denies family history of Diabetes Bleeding disorder Social History Alcohol intake: never Household members: spouse Marital status: Current occupational status: disabled History of recent travel: No Data Anesthesia Cardiac Studies: No Data to Display
--- NOTE | 2021-05-21 08:11 | W.PM.OPSFHP ---
Same Day Surgery H&P Indication for Procedure/HPI DATE OF PROCEDURE: May 21, 2021 CHIEF COMPLAINT/INDICATIONFOR SURGICAL PROCEDURE: colonoscopy PREOP DIAGNOSIS: diagnostic PLANNED PROCEDRUE: Operation Date: 05/21/21 08:45 Proposed Procedures p Colonoscopy 04744 k59.00(Not Applicable) - Robb Barber MD Medications/Allergies* Home Medications Medication Instructions Recorded Confirmed Type furosemide 80 mg tablet 80 mg PO BID 01/14/21 05/20/21 History multivitamin 1 tab PO DAILY 01/14/21 05/20/21 History sorbital 10 ml PO DAILY PRN 01/14/21 05/20/21 History aspirin 81 mg chewable tablet 81 mg PO DAILY tab 04/27/21 05/20/21 History clonidine HCl 0.3 mg tablet 0.3 mg PO TID 04/27/21 05/20/21 History sodium bicarbonate 650 mg PO TID 05/20/21 05/20/21 History Allergies/Adverse Reactions Allergy/AdvReac Type Severity Reaction Status Date / Time No Known Allergies Allergy Verified 05/20/21 11:35 Pertinent History/Comorbid Conditions* Medical History (Updated 05/04/21 @ 13:31 by Robb Barber MD) Chronic kidney disease (CKD) stage G5/A1, glomerular filtration rate (GFR) less than or equal to 15 mL/min/1.73 square meter and albuminuria creatinine ratio less than 30 mg/g COVID-19 Positive test 06/29/2020, Neg test 01/14/2021 Diverticulitis Gout Hyperlipidemia Hypertension with albuminuria Hypertensive urgency Hypothyroidism JEVON (obstructive sleep apnea) Peritoneal dialysis status Pigmentation abnormality of skin Tachycardia URI (upper respiratory infection) Surgical History (Updated 06/09/20 @ 15:12 by Robb Barber MD) H/O circumcision Peritoneal dialysis catheter in place (05/27/20) Family History (Updated 05/04/20 @ 10:24 by Maryann Au LPN) CAD (coronary artery disease) Anesthesia complication Mother allergic reaction and on surgical table Hypertension Stroke Denies family history of Diabetes Bleeding disorder Social History Alcohol intake: never Household members: spouse Marital status: Current occupational status: disabled History of recent travel: No Pertinent Exam Findings alert, oriented x 3 and regular rate & rhythm Recommendations Surgery/Procedure today Coding Level of Care Code Acute Cotton Stomper for Chg Jeancarlos
[2021-05-21 08:15] VITALS: BP 163/99; PULSE 72; RESP 18; TEMP 36.3; O2SAT 95
[2021-05-21 08:22] VITALS: BMI 38.2
[2021-05-21] MEDS: sodium chloride 0.9% 1,000 ML 30 ML IV (08:33)
[2021-05-21 09:47] VITALS: BP 179/97; PULSE 75; RESP 16; TEMP 36.1; O2SAT 96
[2021-05-21 10:01] VITALS: BP 159/89; PULSE 84; RESP 18; O2SAT 96
[2021-05-21 10:12] VITALS: BP 113/65; PULSE 78; RESP 16; TEMP 36.4; O2SAT 97
--- NOTE | 2021-05-21 10:40 | ANE.PACU2 ---
Inpatient post-anesthesia follow up: Airway intact: Yes Vital signs: Temperature 97.6 F Pulse Rate 78 Respiratory Rate 16 Blood Pressure 113/65 Pulse Oximetry 97 Oxygen Delivery Me thod Room Air Oxygen Flow Rate 3 Fraction of Inspir ed Oxygen Hydration adequate: Yes Mental status: Baseline
== END 2021-05-21 10:23 | disposition home or self-care (01) ==
PROVIDERS: PCP Family Medicine Adult Medicine; Visit Provider Surgery
PROC: 0DJD8ZZ Inspection of Lower Intestinal Tract, Via Natural or Artificial Opening Endoscopic (ICD-10-PCS; CPT 45378; principal; 2021-05-21 08:45)
DX: Z12.11 Encounter for screening for malignant neoplasm of colon (principal); D12.2 Benign neoplasm of ascending colon; D12.4 Benign neoplasm of descending colon; D12.5 Benign neoplasm of sigmoid colon; D12.3 Benign neoplasm of transverse colon; K64.8 Other hemorrhoids; E03.9 Hypothyroidism, unspecified; I12.0 Hypertensive chronic kidney disease with stage 5 chronic kidney disease or end stage renal disease; N18.5 Chronic kidney disease, stage 5
CPT/HCPCS: 45380; 45381; 45385; 88305; 96360; J2704; J3490; J7030

== ENCOUNTER → 2021-07-07 15:32 | Outpatient (BNVA) | payer MEDICARE, SELFPAY | PROVIDERS: PCP Family Medicine Adult Medicine; Visit Provider Nurse Practitioner Family | DX: Z20.822 Contact with and (suspected) exposure to COVID-19 (principal); E78.5 Hyperlipidemia, unspecified; N18.5 Chronic kidney disease, stage 5; E66.09 Other obesity due to excess calories | CPT/HCPCS: 87635 ==

== ENCOUNTER 2021-07-10 09:47 | Outpatient (CLI) | payer MEDICARE, SELFPAY ==
[2021-07-10 09:53] VITALS: BP 157/99; PULSE 105; RESP 16; TEMP 36.7; O2SAT 99; BMI 37.0
[2021-07-10 11:00] VITALS: BP 179/99; PULSE 100; RESP 16; TEMP 36.7; O2SAT 96
[2021-07-10 12:02] VITALS: BP 150/85; PULSE 87; RESP 20; TEMP 36.4; O2SAT 94
== END 2021-07-10 09:48 | disposition home or self-care (01) ==
PROVIDERS: PCP Family Medicine Adult Medicine; Visit Provider Nurse Practitioner Family
DX: U07.1 COVID-19 (principal)
CPT/HCPCS: 96365

== ENCOUNTER → 2022-04-20 09:46 | Outpatient (BNVA) | payer OTHER, SELFPAY | PROVIDERS: PCP Family Medicine Adult Medicine; Visit Provider Family Medicine | DX: J06.9 Acute upper respiratory infection, unspecified (principal) | CPT/HCPCS: 71046; 87400 ==

== ENCOUNTER → 2023-06-30 11:53 | Outpatient (BNVA) | payer MEDICARE, SELFPAY | PROVIDERS: PCP Family Medicine Adult Medicine; Visit Provider Family Medicine Adult Medicine | DX: I10 Essential (primary) hypertension (principal); R80.9 Proteinuria, unspecified; N40.1 Benign prostatic hyperplasia with lower urinary tract symptoms; E78.5 Hyperlipidemia, unspecified; Z12.5 Encounter for screening for malignant neoplasm of prostate; N18.6 End stage renal disease; G47.33 Obstructive sleep apnea (adult) (pediatric); E03.9 Hypothyroidism, unspecified; J98.01 Acute bronchospasm; Z99.2 Dependence on renal dialysis; E78.2 Mixed hyperlipidemia | CPT/HCPCS: 80053; 80061; 84443; 85025; G0103 ==

== ENCOUNTER → 2023-11-23 08:45 | Outpatient (BNVA) | payer MEDICARE, OTHER, SELFPAY | PROVIDERS: PCP Family Medicine Adult Medicine; Visit Provider Podiatrist Foot & Ankle Surgery | DX: L60.0 Ingrowing nail (principal) | CPT/HCPCS: 99213 ==

== ENCOUNTER 2024-01-12 14:27 | Outpatient (CLI) | payer MEDICARE, SELFPAY ==
[2024-01-12 15:29] LABS: Basophils % 0.8 %; Eosinophils # 0.1 10^3/uL (0.0-0.8); Eosinophils % 2.9 %; Hematocrit 32.3 % (37-53); Lymphocytes # 0.9 10^3/uL (0.8-4.8); Lymphocytes % 24.9 %; Mean Corpuscular HGB Conc 31.6 g/dL (30-55); Mean Corpuscular Hemoglobin 29.7 pg (27-33); Mean Corpuscular Volume 94.2 fl (82-101); Mean Platelet Volume 10.8 fL (7.4-10.4); Monocytes # 0.5 10^3/uL (0.2-0.9); Monocytes % 13.4 %; Neutrophils # 2.16 10^3/uL (1.8-7.7); Neutrophils % 57.7 %; Nucleated Red Blood Cells % 0.5 %; Platelet Count 107 10^3/cmm (157-399); Red Blood Count 3.43 10^6/uL (3.85-5.65); Red Cell Distribution Width 15.5 % (12.1-15.1); White Blood Count 3.74 10^3/uL (3.29-11.43)
[2024-01-12 15:52] LABS: Alanine Aminotransferase 41 U/L (0-41); Albumin Level 4.1 g/dL (3.5-5.2); Alkaline Phosphatase 79 U/L (40-130); Anion Gap 16.2 (5-19); Aspartate Amino Transferase 35 U/L (0-40); Blood Urea Nitrogen 26 mg/dL (8-23); Calcium 9.3 mg/dL (8.5-10.5); Carbon Dioxide 31 mmol/L (22-29); Chloride 93 mmol/L (98-107); Glomerular Filtration Rate 10.3 mL/min (90-130); Glucose 97 mg/dL (65-115); Osmolality Calculated 289 mOsm/kg (285-295); Potassium 3.2 mmol/L (3.5-5.1); Sodium 137 mmol/L (136-145); Total Bilirubin 0.4 mg/dL (0.15-1.2); Total Protein 6.1 g/dL (6.6-8.7)
== END 2024-01-12 14:28 | disposition home or self-care (01) ==
LOC: LAB 14:30
PROVIDERS: PCP Family Medicine Adult Medicine; Visit Provider Family Medicine Adult Medicine
DX: K65.9 Peritonitis, unspecified (principal)
CPT/HCPCS: 80053; 85025

== ENCOUNTER → 2024-08-09 08:51 | Outpatient (BNVA) | payer MEDICARE, OTHER, SELFPAY | PROVIDERS: PCP Family Medicine; Visit Provider Student in an Organized Health Care Education/Training Program | DX: Z12.11 Encounter for screening for malignant neoplasm of colon (principal); Z86.0100 Personal history of colon polyps, unspecified | CPT/HCPCS: 99024; 99204 ==

== ENCOUNTER 2024-09-03 08:08 | Day surgery (SDC) | payer MEDICARE, SELFPAY ==
[2024-09-03 08:26] VITALS: BP 112/69; PULSE 96; RESP 16; TEMP 36.3; O2SAT 95; BMI 36.3
[2024-09-03] MEDS: sodium chloride 0.9% 500 ML 15 ML IV (08:32)
--- NOTE | 2024-09-03 08:41 | ANES.PREANE2 ---
Pre-Anesthetic Assessment Height/Weight: Height 1.85 m Weight 124.738 kg Temp Pulse Resp BP Pulse Ox O2 Del Method 97.3 F L 96 16 112/69 95 Room Air 09/03/24 08:26 09/03/24 08:26 09/03/24 08:26 09/03/24 08:26 09/03/24 08:26 09/03/24 08:26 Preop Diagnosis: Screen Operation Date: 09/03/24 09:00 Proposed Procedures p Colonoscopy [id number] G0105 Z12.11(Not Applicable) - Markus Harris MD Familial anesthetic complications: none Was Beta Kelly taken within 24 hours: Yes Was Clonidine taken within 24 hours: Yes Last intake: Intake Last Liquid Date 09/02/24 Last Liquid Time 23:30 Last Solid Date 09/01/24 Last Solid Time 02:30 Social No alcohol and No tobacco Exam alert, oriented x 3, clear to auscultation bilaterally and regular rate & rhythm Airway Cervical ROM: within normal limits Mallampati: Class II Dentition: full Pulmonary Chronic Obstructive Pulmonary Disease and Sleep Apnea CV/HEM Anemia and Hypertension Chronic Renal Failure Dialysis yesterday, anuric GI None reported Metabolic Hyperlipidemia and Thyroid Disease hypothyroid [facility] [place] None reported Neuropsych None reported Anesthetic Plan ASA status: 3 Anesthesia: MAC Risk of > 500 ml blood loss (7ml/kg in children): No Medications/Allergies Home Medications ?Medication ?Instructions ?Recorded ?Confirmed ?Last Taken ?Type multivitamin 1 tab PO DAILY 01/14/21 09/03/24 08/29/24 History sorbital 10 ml PO DAILY PRN Constipation 01/14/21 09/03/24 07/10/21 History clonidine HCl 0.1 mg tablet 0.1 mg PO TID PRN BLOOD PRESSURE 04/12/23 09/03/24 Unknown Rx 90 days #360 tabs Nebulizer tubing/reserse/mouthpiece #1 ea 11/09/23 09/03/24 Unknown Rx albuterol sulfate 90 mcg/actuation 2 puff inhalation Q6H PRN 11/09/23 09/03/24 Unknown Rx aerosol inhaler shortness of breath or wheezing #8.5 grams ipratropium 0.5 mg-albuterol 3 mg 3 ml inhalation Q6H PRN 11/17/23 09/03/24 Unknown Rx (2.5 mg base)/3 mL nebulization SOB/wheezing #180 mL soln carvedilol 12.5 mg tablet 12.5 mg PO BID 01/17/24 09/03/24 09/03/24 05:30 History levothyroxine 75 mcg tablet 75 mcg PO DAILY low thyroid #90 03/11/24 09/03/24 09/03/24 05:30 Rx tabs fluticasone propionate 50 2 spray intranasal DAILY #16 grams 08/01/24 09/03/24 08/27/24 Rx mcg/actuation nasal spray,suspension (Flonase Allergy Relief) gabapentin 100 mg capsule 100 mg PO TID #180 caps 08/01/24 09/03/24 08/29/24 Rx colchicine 0.6 mg tablet (Colcrys) 0.6 mg PO DAILY PRN gout flare up 08/29/24 09/03/24 Unknown History atorvastatin 80 mg tablet 80 mg PO DAILY #90 tabs 09/02/24 09/03/24 09/03/24 05:30 Rx Allergies Allergy/AdvReac Type Severity Reaction Status Date / Time No Known Allergies Allergy Verified 09/03/24 08:24 Current Medications Generic Name Dose Route Start Last Admin Trade Name Freq PRN Reason Stop Dose Admin Sodium Chloride 500 mls @ 15 mls/hr 09/03/24 08:25 09/03/24 08:32 Sodium Chloride 0.9% IV 09/04/24 08:24 15 mls/hr .Q24H PRN Administration COLONOSCOPY FLUIDS PFSH Anesthesia Medical History Obesity (BMI 30-39.9) Prediabetes A1C 1.25 5.6 Anemia of CKD Colon polyps Hemodialysis patient Penny COPD (chronic obstructive pulmonary disease) Cough due to bronchospasm Thrombocytopenia 06/30/2023 H/H 10.2/34.5, Plt 92 History of diverticulosis ESRD (end stage renal disease) 07/24/2023 CR 12.4, BUN 77 Nodule of skin of abdomen Neuropathy involving both lower extremities History of colon polyps Gout Hypertension with albuminuria JEVON (obstructive sleep apnea) couldn't tolerate cpap Hypothyroidism Hypertensive urgency Hyperlipidemia Surgical History Hx of arteriovenostomy for renal dialysis left arm History of colonoscopy with polypectomy (05/21/21) 12.21--tubular adenomas and TVA; to repeat 3 yrs H/O circumcision Family History Mother Anesthesia complication allergic reaction and on surgical table Father CAD (coronary artery disease) Carotid artery disease Prostate cancer Other Hypertension Stroke Denies family history of Diabetes Bleeding disorder Social History Smoking and tobacco/nicotine status: never used tobacco/nicotine Alcohol intake: never Substance/Drug Use: never Household members: spouse and other Details: granddaughter Marital status: Number of children: 4 Highest education level completed: High School Graduate Current occupational status: disabled 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
--- NOTE | 2024-09-03 09:17 | W.PM.OPSUD ---
Surgery/Procedure H&P Update DATE OF PROCEDURE: September 03, 2024 DATE H&P PERFORMED: 08/09/24 H&P UPDATE INFORMATION: I have reviewed H&P completed within last 30 days, I have examined patient prior to procedure and No changes to prior documentation PREOP DIAGNOSIS: Screen PLANNED PROCEDURE: Operation Date: 09/03/24 09:00 Proposed Procedures p Colonoscopy [id number] G0105 Z12.11(Not Applicable) - Markus Harris MD
[2024-09-03 09:38] VITALS: BP 80/53; PULSE 78; RESP 17; TEMP 36.2; O2SAT 99
[2024-09-03 09:45] VITALS: BP 104/60; PULSE 90; RESP 16; TEMP 36.3; O2SAT 92
[2024-09-03 10:00] VITALS: BP 109/74; PULSE 88; RESP 18; TEMP 36.4; O2SAT 96
--- NOTE | 2024-09-03 10:05 | ANE.PACU2 ---
Inpatient post-anesthesia follow up: Airway intact: Yes Vital signs: Temperature 97.5 F Pulse Rate 88 Respiratory Rate 18 Blood Pressure 109/74 Pulse Oximetry 96 Oxygen Delivery Me thod Room Air Oxygen Flow Rate 6 Fraction of Inspir ed Oxygen Hydration adequate: Yes Nausea and vomiting: No Pain level: 1 Mental status: Baseline
== END 2024-09-03 10:05 | disposition home or self-care (01) ==
PROVIDERS: PCP Family Medicine; Visit Provider Student in an Organized Health Care Education/Training Program
PROC: 0DJD8ZZ Inspection of Lower Intestinal Tract, Via Natural or Artificial Opening Endoscopic (ICD-10-PCS; CPT 45378; principal; 2024-09-03 09:00)
DX: Z12.11 Encounter for screening for malignant neoplasm of colon (principal); K57.30 Diverticulosis of large intestine without perforation or abscess without bleeding; Z86.0100 Personal history of colon polyps, unspecified; J44.9 Chronic obstructive pulmonary disease, unspecified; E78.5 Hyperlipidemia, unspecified; E03.9 Hypothyroidism, unspecified; E66.9 Obesity, unspecified; Z68.36 Body mass index [BMI] 36.0-36.9, adult; G47.33 Obstructive sleep apnea (adult) (pediatric); I12.0 Hypertensive chronic kidney disease with stage 5 chronic kidney disease or end stage renal disease; N18.6 End stage renal disease; Z99.2 Dependence on renal dialysis
CPT/HCPCS: 45378; G0121; J2003; J2704; J7040; J9999

== ENCOUNTER 2024-10-08 14:56 | Outpatient (CLI) | payer MEDICARE, OTHER, SELFPAY ==
--- NOTE | 2024-10-08 15:01 | XR_ITS ---
WS: [id number] Exam: XR chest 2V* [id number] Date/Time of Exam: 10/08/2024 3:01 PM Reason For Exam: continue cough and short of breath Comparison 04/20/2022. The lungs are fully inflated and clear. Normal cardiomediastinal silhouette. No pleural effusion. Bony structures are intact. XR/XR chest 2V* [id number] IMPRESSION: 1. No acute cardiopulmonary finding.
== END 2024-10-08 14:57 | disposition home or self-care (01) ==
PROVIDERS: PCP Family Medicine; Visit Provider Emergency Medicine
DX: R05.9 Cough, unspecified (principal)
CPT/HCPCS: 71046

== ENCOUNTER → 2024-12-23 08:06 | Outpatient (BNVA) | payer MEDICARE, OTHER, SELFPAY | PROVIDERS: PCP Family Medicine; Visit Provider Podiatrist Foot & Ankle Surgery | DX: I73.9 Peripheral vascular disease, unspecified (principal); L60.3 Nail dystrophy; L60.0 Ingrowing nail; N18.6 End stage renal disease; R73.03 Prediabetes; G57.93 Unspecified mononeuropathy of bilateral lower limbs; E03.9 Hypothyroidism, unspecified; Z99.2 Dependence on renal dialysis; D63.1 Anemia in chronic kidney disease | CPT/HCPCS: 11721; 99213 ==

== ENCOUNTER → 2025-01-09 11:58 | Outpatient (BNVA) | payer MEDICARE, OTHER, SELFPAY | PROVIDERS: PCP Family Medicine; Visit Provider Family Medicine | DX: I10 Essential (primary) hypertension (principal); R80.9 Proteinuria, unspecified; E78.2 Mixed hyperlipidemia; I73.9 Peripheral vascular disease, unspecified; D69.6 Thrombocytopenia, unspecified; R73.03 Prediabetes; E03.9 Hypothyroidism, unspecified; N18.6 End stage renal disease; Z99.2 Dependence on renal dialysis; D63.1 Anemia in chronic kidney disease; E66.09 Other obesity due to excess calories; Z12.5 Encounter for screening for malignant neoplasm of prostate | CPT/HCPCS: 80053; 80061; 83036; 83721; 84439; 84443; 85025; G0103 ==

== ENCOUNTER → 2025-03-24 10:14 | Outpatient (BNVA) | payer MEDICARE, OTHER, SELFPAY | PROVIDERS: PCP Family Medicine; Visit Provider Podiatrist Foot & Ankle Surgery | DX: I73.9 Peripheral vascular disease, unspecified (principal); L60.3 Nail dystrophy; L60.8 Other nail disorders; R73.03 Prediabetes; N18.6 End stage renal disease; G57.93 Unspecified mononeuropathy of bilateral lower limbs; E03.9 Hypothyroidism, unspecified; Z99.2 Dependence on renal dialysis; D63.1 Anemia in chronic kidney disease | CPT/HCPCS: 11721 ==

== ENCOUNTER → 2025-05-13 12:24 | Outpatient (BNVA) | payer MEDICARE, OTHER, SELFPAY | PROVIDERS: PCP Family Medicine | DX: J02.9 Acute pharyngitis, unspecified (principal) | CPT/HCPCS: 87071; 87880 ==

== ENCOUNTER → 2025-06-06 09:32 | Outpatient (BNVA) | payer MEDICARE, SELFPAY | PROVIDERS: PCP Family Medicine; Visit Provider Family Medicine | DX: E78.2 Mixed hyperlipidemia (principal); I10 Essential (primary) hypertension; R80.9 Proteinuria, unspecified; E03.9 Hypothyroidism, unspecified; E11.65 Type 2 diabetes mellitus with hyperglycemia; E66.09 Other obesity due to excess calories | CPT/HCPCS: 80061; 84439; 84443 ==